=== PATIENT | male | born 1940 | race Caucasian/White ===

== ENCOUNTER 2024-04-13 06:25 | Observation (INO) ==
[~2024-04-13 06:25] MED LIST: KETAMINE HCL ONE; XYLOCAINE 2 % (PLAIN) ONE
[2024-04-13] MEDS: NOZIN NASAL SANITIZER TP ONE (06:45)
[2024-04-13] MEDS: NS 1,000 ML IV 1,000 ML ONE (07:00)
[2024-04-13] MEDS: PEPCID 20 MG VIAL ONE (07:27)
[2024-04-13] MEDS: ZOFRAN INJ 4 MG VIAL ONE (07:27)
[2024-04-13] MEDS: PRECEDEX INJ VIAL ONE (07:27)
[2024-04-13] MEDS: REGLAN INJ 10 MG VIAL ONE (07:27)
[2024-04-13] MEDS: FENTANYL VIAL INJ 100 mcg ONE (07:30)
[2024-04-13] MEDS: VERSED ONE (07:30)
[2024-04-13] MEDS: DIPRIVAN VIAL 20 ML ONE ×3 (07:34→10:31)
[2024-04-13] MEDS: NS IV PRN (07:40)
[2024-04-13] MEDS: VERSED IVP PRN (07:47)
[2024-04-13] MEDS: ZOFRAN INJ 4 MG VIAL IVP PRN (07:47)
[2024-04-13] MEDS: PEPCID 20 MG VIAL IVP PRN (07:47)
[2024-04-13] MEDS: ANCEF VIAL 1 GRAM ONE (07:47)
[2024-04-13] MEDS: NS 100 ML IV 100 ML ONE (07:47)
[2024-04-13] MEDS: REGLAN INJ 10 MG VIAL IVP PRN (07:47)
[2024-04-13] MEDS: PROPOFOL IVP PRN (07:55)
[2024-04-13] MEDS: KETAMINE HCL IV PRN (07:55)
[2024-04-13] MEDS: PRECEDEX INJ VIAL IVP PRN (07:55)
[2024-04-13] MEDS: ANCEF VIAL 1 GRAM IV PRN (07:57)
[2024-04-13] MEDS: VISIPAQUE 50 ML ONE (08:09)
[2024-04-13] MEDS: HEPARIN 1,000 UNIT/500 ML-NS 3,000 UNIT/1,500 ML IV.SOLN ONE (08:09)
[2024-04-13] MEDS: MARCAINE 0.5% ONE ×2 (08:09→09:11)
[2024-04-13] MEDS: NEO-SYNEPHRINE INJ ONE (08:11)
[2024-04-13] MEDS: HEPARIN SODIUM INJ 5000 UNITS ONE ×2 (08:15→09:45)
[2024-04-13] MEDS: HESPAN IV IN NS 500 ML IV ONE (08:55)
[2024-04-13] MEDS: NEO-SYNEPHRINE INJ IVP PRN (09:03)
[2024-04-13] MEDS: VASOSTRICT INJ 20 UNITS VIAL ONE (09:16)
[2024-04-13] MEDS: NS 500 ML IV 500 ML IV ONE (09:18)
[2024-04-13] MEDS: FENTANYL VIAL INJ 100 mcg IVP PRN (09:18)
[2024-04-13] MEDS: HEPARIN SODIUM INJ 5000 UNITS IVP PRN (09:45)
[2024-04-13] MEDS ORDERED: NORVASC TAB 10 MG PRN (10:06)
[2024-04-13] MEDS ORDERED: ZOFRAN INJ 4 MG VIAL IVP PRN (10:07)
[2024-04-13] MEDS ORDERED: DILAUDID INJ IVP PRN (10:07)
[2024-04-13] MEDS ORDERED: BENADRYL INJ 50 MG VIAL IVP PRN (10:07)
[2024-04-13] MEDS ORDERED: BARHEMSYS INJ IVP PRN (10:07)
[2024-04-13] MEDS: DILAUDID INJ ONE (10:15)
[2024-04-13] MEDS: DUONEB 0.5 MG/3 MG (3 mL) NEB ONE (10:26)
--- NOTE | 2024-04-13 10:32 | OR.IMMED ---
IMMEDIATE POST-OP NOTE Immediate Post-Op Note Date of surgery/procedure: 04/13/24 Pre-Op Diagnosis: Bilateral iliac vein compression Post-Op Diagnosis: Same Procedure: Bilateral iliac venograms, bilateral iliac vein intravascular ultrasound, stenting of the left common and external iliac veins with complication of inability to remove the balloon requiring dissection of the femoral vein, venotomy removal of the distal and balloon and closure. Description of Procedure: Dictated Surgeon/Traffic Control Technician: [place] Findings: 32% compression of the left common iliac vein, 40% compression of the left external iliac vein, 40% compression of the right common iliac vein Estimated Blood Loss: 900cc Complications: See above Progress Notes: To PACU then to admission upstairs will monitor hemoglobin
[2024-04-13] MEDS ORDERED: NovoLIN R (or HumuLIN R) SUBCUT PRN (10:33)
[2024-04-13] MEDS ORDERED: PERCOCET TAB 5/325 MG PO PRN (10:38)
[2024-04-13 10:45] LABS: BASOPHILS % (AUTO) 0.5 % (0.2-1.0); EOSINOPHILS # (AUTO) 0.3 x10^3/uL (0.0-0.2); EOSINOPHILS % (AUTO) 4.1 % (0.9-2.9); HEMATOCRIT 25.8 % (42.0-54.0); HEMOGLOBIN 8.6 g/dL (13.5-18.0); LYMPHOCYTES # (AUTO) 1.2 X10^3/uL (1.3-2.9); LYMPHOCYTES % (AUTO) 14.6 % (21.0-51.0); MEAN CORPUSCULAR HEMOGLOBIN 27.3 pg (27.0-34.0); MEAN CORPUSCULAR HGB CONC 33.2 g/dL (33.0-35.0); MEAN CORPUSCULAR VOLUME 82.2 fL (80.0-100.0); MEAN PLATELET VOLUME 7.1 fL (7.4-11.0); MONOCYTES # (AUTO) 0.8 x10^3/uL (0.3-0.8); MONOCYTES % (AUTO) 9.2 % (0.0-13.0); NEUTROPHILS # (AUTO) 6.1 x10^3/uL (2.2-4.8); NEUTROPHILS % (AUTO) 71.6 % (42.0-75.0); PLATELET COUNT 174 X10^3/uL (150.0-450.0); RED BLOOD COUNT 3.14 X10^6/uL (4.7-6.0); RED CELL DISTRIBUTION WIDTH 19.5 % (11.6-16.5); WHITE BLOOD COUNT 8.5 X10^3/uL (3.6-10.0)
[2024-04-13] MEDS: NARCAN INJ ONE (11:08)
--- NOTE | 2024-04-13 11:20 | RAD ---
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 It was likely within norm al limits. 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 Aorta is calcified. Lungs markedly hypoinflated . This is crowding the lung markings. There is subsegmental atelectasis in the right lung base. No acute alveolar infiltrates or areas of consolidation identified. The interstitium is prominent whic h could be on the basis of mild interstitial edema or perhaps interstitial pneumonitis. Bony thorax is unremarkable. IMPRESSION: Lungs are markedly hypoinflated but free of acute alveolar infiltrates or pleural effusions. The interstitium is prominent which could be on the basis of mild interstitial edema or interstitial pneumonitis. Clinical and laboratory correlation recommended. THIS IS AN ELECTRONICALLY VERIFIED FINAL REPORT 04/13/2024 11:17 AM - Electronically signed by Domingo Brunner MD
[2024-04-13 11:22] LABS: ABG ALLEN TEST POS; ABG BASE EXCESS 2.1 mmol/L (-2.0-2.0); ABG HCO3 27.3 mmol/L (22-26)
[2024-04-13] MEDS ORDERED: XOPENEX 1.25 MG/3 ML NEBULE NEB ONE (12:23)
[2024-04-13] MEDS: XOPENEX 1.25 MG/3 ML NEBULE NEB SCH (13:00)
[2024-04-13] MEDS: LR 1,000 ML IV 1,000 ML IV SCH (13:03)
[2024-04-13] MEDS ORDERED: TESSALON PERLES PO PRN (14:00)
[2024-04-13 14:02] VITALS: BMI 30.1
[2024-04-13] MEDS: APRESOLINE TAB 25 MG PO SCH (16:58)
[2024-04-13] MEDS: GLUCOPHAGE PO SCH (16:59)
[2024-04-13] MEDS: GLUCOPHAGE ONE (18:02)
[2024-04-13 18:52] LABS: BASOPHILS % (AUTO) 0.4 % (0.2-1.0); EOSINOPHILS # (AUTO) 0.1 x10^3/uL (0.0-0.2); EOSINOPHILS % (AUTO) 1.1 % (0.9-2.9); HEMATOCRIT 29.1 % (42.0-54.0); HEMOGLOBIN 9.5 g/dL (13.5-18.0); LYMPHOCYTES # (AUTO) 0.9 X10^3/uL (1.3-2.9); LYMPHOCYTES % (AUTO) 8.1 % (21.0-51.0); MEAN CORPUSCULAR HEMOGLOBIN 27.1 pg (27.0-34.0); MEAN CORPUSCULAR HGB CONC 32.8 g/dL (33.0-35.0); MEAN CORPUSCULAR VOLUME 82.7 fL (80.0-100.0); MEAN PLATELET VOLUME 7.7 fL (7.4-11.0); MONOCYTES % (AUTO) 9.3 % (0.0-13.0); NEUTROPHILS # (AUTO) 8.9 x10^3/uL (2.2-4.8); NEUTROPHILS % (AUTO) 81.1 % (42.0-75.0); PLATELET COUNT 195 X10^3/uL (150.0-450.0); RED BLOOD COUNT 3.52 X10^6/uL (4.7-6.0); RED CELL DISTRIBUTION WIDTH 19.3 % (11.6-16.5); WHITE BLOOD COUNT 10.9 X10^3/uL (3.6-10.0)
[2024-04-13] MEDS: BUSPAR PO SCH (21:01)
[2024-04-13] MEDS: SNACK - Diabetic Appropriate PO SCH (21:03)
[2024-04-13] MEDS: PULMICORT NEB TX 0.5 MG NEB SCH (21:12)
[2024-04-14] MEDS: GLUCOPHAGE ONE (06:02)
[2024-04-14] MEDS: GLUCOTROL XL 24-HR PO SCH (06:02)
[2024-04-14 08:39] VITALS: TEMP 98.2; O2SAT 96
[2024-04-14] MEDS: CARDIZEM CD 180 MG 24-HR PO SCH (08:58)
[2024-04-14] MEDS: TOPROL XL PO SCH (08:59)
[2024-04-14] MEDS: ZYLOPRIM PO SCH (08:59)
[2024-04-14] MEDS: PROTONIX TAB 40 MG PO SCH (08:59)
[2024-04-14] MEDS: LASIX PO SCH (08:59)
[2024-04-14] MEDS: LIPITOR TAB 20 MG PO SCH (09:00)
[2024-04-14] MEDS: PROSCAR PO SCH (09:00)
[2024-04-14] MEDS: ASPIRIN EC 81 MG PO SCH (09:00)
[2024-04-14] MEDS: PLAVIX PO SCH (09:01)
[2024-04-14] MEDS: K-DUR TAB 20 MEQ PO SCH (09:02)
[2024-04-14] MEDS: LOVENOX INJ 40 MG SYR SC SCH (09:03)
--- NOTE | 2024-04-14 09:51 | W.DIS.FURT ---
Summary of Discharge Discharge Summary of Date Date of Exam: 04/14/24 Admission Date Date of Admission: 04/13/24 Admission Diagnosis Hospital Course: This patient is a 83-year-old male who has been diagnosed with bilateral iliac vein compression. He was taken to the operating suite yesterday for stenting of the left common iliac vein. On withdrawing the balloon after dilating the stent the balloon got caught on the stent and could not be removed from the left femoral iliac vein. This required a open venotomy to remove the balloon. Postop he has done very well. He did have approximate 900 cc of blood loss and required 1 unit of packed red blood cells. Postprocedure his hemoglobin has been stable , actually been rising and was 9.5 on discharge. He is leg is intact. Dressing is intact with no hematoma. He has had some shortness of breath which not unusual for him. He will continue on his usual medications including his inhaler therapy. He will follow-up me in 1 week. He will continue all his other medications as prescribed and be given prescription for Percocet, 5 mg tablets, 1 every 6 hours as needed pain. Vital Signs: Vital Signs (72 hours) 04/13/24 06:33 04/13/24 06:33 04/13/24 10:24 Temperature 97.8 F 97.3 F L Pulse Rate 90 90 64 Pulse Rate [Bilateral Radial] Respiratory Rate 21 22 Blood Pressure 177/81 89/57 Blood Pressure [Left Arm] O2 Sat by Pulse Oximetry 91 L 96 Oxygen Delivery Method Nasal Cannula Aerosol Face Tent Oxygen Flow Rate FIO2% 04/13/24 10:34 04/13/24 10:29 04/13/24 10:39 Temperature Pulse Rate 61 66 56 L Pulse Rate [Bilateral Radial] Respiratory Rate 22 22 20 Blood Pressure 96/63 95/63 102/64 Blood Pressure [Left Arm] O2 Sat by Pulse Oximetry 94 L 96 92 L Oxygen Delivery Method Aerosol Face Tent Aerosol Face Tent Nasal Cannula Oxygen Flow Rate FIO2% 04/13/24 10:44 04/13/24 10:54 04/13/24 10:59 Temperature Pulse Rate 66 65 67 Pulse Rate [Bilateral Radial] Respiratory Rate 20 21 21 Blood Pressure 108/64 112/64 122/70 Blood Pressure [Left Arm] O2 Sat by Pulse Oximetry 90 L 93 L 93 L Oxygen Delivery Method Nasal Cannula Oxy Mask Oxy Mask Oxygen Flow Rate FIO2% 04/13/24 11:04 04/13/24 10:49 04/13/24 11:09 Temperature Pulse Rate 57 L 62 64 Pulse Rate [Bilateral Radial] Respiratory Rate 21 20 24 Blood Pressure 121/70 107/70 120/69 Blood Pressure [Left Arm] O2 Sat by Pulse Oximetry 92 L 89 L 92 L Oxygen Delivery Method Oxy Mask Nasal Cannula Oxy Mask Oxygen Flow Rate FIO2% 04/13/24 11:14 04/13/24 11:19 04/13/24 11:24 Temperature Pulse Rate 57 L 67 54 L Pulse Rate [Bilateral Radial] Respiratory Rate 30 H 30 H 26 H Blood Pressure 122/74 114/58 117/69 Blood Pressure [Left Arm] O2 Sat by Pulse Oximetry 93 L 94 L 93 L Oxygen Delivery Method Oxy Mask Oxy Mask Oxy Mask Oxygen Flow Rate FIO2% 04/13/24 11:29 04/13/24 11:34 04/13/24 11:39 Temperature Pulse Rate 58 L 67 69 Pulse Rate [Bilateral Radial] Respiratory Rate 30 H 30 H 30 H Blood Pressure 115/72 115/72 120/67 Blood Pressure [Left Arm] O2 Sat by Pulse Oximetry 96 93 L 95 Oxygen Delivery Method Oxy Mask Oxy Mask Oxy Mask Oxygen Flow Rate FIO2% 04/13/24 11:50 04/13/24 11:50 04/13/24 11:50 Temperature 97.9 F Pulse Rate Pulse Rate [Bilateral Radial] 62 Respiratory Rate 30 H Blood Pressure Blood Pressure [Left Arm] 125/77 O2 Sat by Pulse Oximetry 97 Oxygen Delivery Method Oxy Mask Nasal Cannula Oxy Mask Oxygen Flow Rate 4 3 FIO2% 32 04/13/24 12:00 04/13/24 12:30 04/13/24 13:00 Temperature Pulse Rate 66 Pulse Rate [Bilateral Radial] 62 63 Respiratory Rate 26 H 24 28 H Blood Pressure 117/64 Blood Pressure [Left Arm] 106/64 124/64 O2 Sat by Pulse Oximetry 97 98 97 Oxygen Delivery Method Nasal Cannula Nasal Cannula Nasal Cannula Oxygen Flow Rate 3 FIO2% 04/13/24 14:00 04/13/24 15:00 04/13/24 16:00 Temperature 97.7 F Pulse Rate Pulse Rate [Bilateral Radial] 68 69 71 Respiratory Rate 22 24 24 Blood Pressure Blood Pressure [Left Arm] 124/67 158/71 140/73 O2 Sat by Pulse Oximetry 96 97 96 Oxygen Delivery Method Nasal Cannula Nasal Cannula Nasal Cannula Oxygen Flow Rate FIO2% 02/18/25 16:00 04/13/24 17:00 04/13/24 18:00 Temperature 97.8 F Pulse Rate 71 Pulse Rate [Bilateral Radial] 71 71 Respiratory Rate 25 H 29 H 25 H Blood Pressure 140/73 Blood Pressure [Left Arm] 149/84 151/70 O2 Sat by Pulse Oximetry 95 96 95 Oxygen Delivery Method Nasal Cannula Nasal Cannula Nasal Cannula Oxygen Flow Rate 3 FIO2% 04/13/24 19:00 04/13/24 19:00 04/13/24 20:00 Temperature 98.0 F Pulse Rate Pulse Rate [Bilateral Radial] 78 74 Respiratory Rate 25 H 28 H Blood Pressure Blood Pressure [Left Arm] 149/75 168/77 O2 Sat by Pulse Oximetry 95 97 Oxygen Delivery Method Nasal Cannula Nasal Cannula Nasal Cannula Oxygen Flow Rate 3 FIO2% 04/13/24 21:00 04/13/24 22:00 04/13/24 23:00 Temperature Pulse Rate Pulse Rate [Bilateral Radial] 82 76 76 Respiratory Rate 36 H 20 29 H Blood Pressure Blood Pressure [Left Arm] 147/90 158/72 140/75 O2 Sat by Pulse Oximetry 97 97 95 Oxygen Delivery Method Nasal Cannula Nasal Cannula Nasal Cannula Oxygen Flow Rate FIO2% 04/14/24 00:00 04/14/24 01:00 04/14/24 02:00 Temperature 98.6 F Pulse Rate Pulse Rate [Bilateral Radial] 83 80 79 Respiratory Rate 23 27 H 23 Blood Pressure Blood Pressure [Left Arm] 157/78 147/67 149/69 O2 Sat by Pulse Oximetry 93 L 94 L 93 L Oxygen Delivery Method Nasal Cannula Nasal Cannula Nasal Cannula Oxygen Flow Rate FIO2% 04/13/24 21:12 04/13/24 21:12 04/14/24 03:00 Temperature Pulse Rate 75 Pulse Rate [Bilateral Radial] 84 Respiratory Rate 34 H Blood Pressure Blood Pressure [Left Arm] 160/86 O2 Sat by Pulse Oximetry 97 95 Oxygen Delivery Method Nasal Cannula Nasal Cannula Oxygen Flow Rate 3 FIO2% 32 04/14/24 04:00 04/14/24 05:00 04/14/24 06:00 Temperature 98.8 F Pulse Rate Pulse Rate [Bilateral Radial] 87 82 85 Respiratory Rate 30 H 23 34 H Blood Pressure Blood Pressure [Left Arm] 147/83 169/72 165/75 O2 Sat by Pulse Oximetry 97 93 L 94 L Oxygen Delivery Method Nasal Cannula Nasal Cannula Nasal Cannula Oxygen Flow Rate FIO2% 04/14/24 07:00 04/14/24 08:00 04/14/24 07:00 Temperature 98.2 F Pulse Rate Pulse Rate [Bilateral Radial] 101 H 81 Respiratory Rate 34 H 26 H Blood Pressure Blood Pressure [Left Arm] 166/76 131/58 O2 Sat by Pulse Oximetry 92 L 96 Oxygen Delivery Method Nasal Cannula Nasal Cannula Nasal Cannula Oxygen Flow Rate 3 FIO2% Labs: Laboratory Last Values WBC 10.9 X10^3/uL (3.6-10.0) H 04/13/24 18:13 RBC 3.52 X10^6/uL (4.7-6.0) L 04/13/24 18:13 Hgb 9.5 g/dL (13.5-18.0) L 04/13/24 18:13 Hct 29.1 % (42.0-54.0) L 04/13/24 18:13 MCV 82.7 fL (80.0-100.0) 04/13/24 18:13 MCH 27.1 pg (27.0-34.0) 04/13/24 18:13 MCHC 32.8 g/dL (33.0-35.0) L 04/13/24 18:13 RDW 19.3 % (11.6-16.5) H 04/13/24 18:13 Plt Count 195 X10^3/uL (150.0-450.0) 04/13/24 18:13 MPV 7.7 fL (7.4-11.0) 04/13/24 18:13 Neut % (Auto) 81.1 % (42.0-75.0) H 04/13/24 18:13 Lymph % (Auto) 8.1 % (21.0-51.0) L 04/13/24 18:13 [place] % (Auto) 9.3 % (0.0-13.0) 04/13/24 18:13 Eos % (Auto) 1.1 % (0.9-2.9) 04/13/24 18:13 Baso % (Auto) 0.4 % (0.2-1.0) 04/13/24 18:13 Neut # (Auto) 8.9 x10^3/uL (2.2-4.8) H 04/13/24 18:13 Lymph # (Auto) 0.9 X10^3/uL (1.3-2.9) L 04/13/24 18:13 [place] # (Auto) 1.0 x10^3/uL (0.3-0.8) H 04/13/24 18:13 Eos # (Auto) 0.1 x10^3/uL (0.0-0.2) 04/13/24 18:13 Baso # (Auto) 0.0 X10^3/uL (0.0-0.1) 04/13/24 18:13 Absolute Nucleated RBC 0.1 /100WBC 04/13/24 18:13 Sample Site Rr 04/13/24 11:11 ABG pH 7.400 (7.35-7.45) 04/13/24 11:11 ABG pCO2 44.0 mmHg (35.0-45.0) 04/13/24 11:11 ABG pO2 67.0 mmHg (80.0-100.0) L 04/13/24 11:11 ABG HCO3 27.3 mmol/L (22-26) H 04/13/24 11:11 ABG O2 Saturation 93.0 % (90-100) 04/13/24 11:11 ABG Base Excess 2.1 mmol/L (-2.0-2.0) H 04/13/24 11:11 Turner Test Pos 04/13/24 11:11 A-a Gradient 220.0 mmHg 04/13/24 11:11 FiO2 48.0 04/13/24 11:11 Blood Gas Comments Pt palma well cdn 04/13/24 11:11 POC Glucose (mg/dL) 135 mg/dL (65-99) H 04/14/24 05:35 Blood Type O POSITIVE 04/12/24 14:00 Antibody Screen Negative 04/12/24 13:57 Crossmatch See Detail 04/12/24 13:57 Reason For Visit: S/P OPEN VENOTOMY, SHORTNESS OF BREATH, Discharge Diagnosis All Active Problems (Updated 04/14/24 @ 09:49 by Ricardo Gloria) Compression of vein (Acute) Plan of Treatment: Continue with present treatment and follow up plan. Pt is to keep follow up appointment as instructed and take medications as ordered. Discharge Medications Discharge Medications: iron Adverse Reaction (Verified 04/13/24 07:12) CONTINUE taking the following medications allopurinol 300 mg tablet 300 mg HS 04/13/24 [History] atorvastatin 20 mg tablet 20 mg HS 04/13/24 [History] clopidogrel 75 mg tablet 75 mg PO QDAY 04/13/24 [History] diltiazem HCl 180 mg capsule,extended release 24 hr 180 mg PO QDAY 04/13/24 [History] finasteride 5 mg tablet 5 mg PO HS 04/13/24 [History] fluticasone fur. 100 mcg-umeclid 62.5 mcg-vilant 25 mcg inhalat.powder (Trelegy Ellipta) 1 ea inhalation QDAY 04/13/24 [History] furosemide 40 mg tablet 40 mg PO BID 04/13/24 [History] glipizide 10 mg tablet, extended release 24 hr 10 mg PO DAILY 04/13/24 [History] hydralazine 25 mg tablet 25 mg PO 3XD 04/13/24 [History] metformin 500 mg tablet 500 mg PO BID 04/13/24 [History] metoprolol succinate 50 mg tablet,extended release 24 hr 50 mg PO QDAY 04/13/24 [History] potassium chloride 20 mEq tablet,extended release 20 meq PO DAILY 04/13/24 [History] Discharge Disposition Assessment: see hospital course Discharge Plan Discharge Plan Hospital Course: This patient is a 83-year-old male who has been diagnosed with bilateral iliac vein compression. He was taken to the operating suite yesterday for stenting of the left common iliac vein. On withdrawing the balloon after dilating the stent the balloon got caught on the stent and could not be removed from the left femoral iliac vein. This required a open venotomy to remove the balloon. Postop he has done very well. He did have approximate 900 cc of blood loss and required 1 unit of packed red blood cells. Postprocedure his hemoglobin has been stable , actually been rising and was 9.5 on discharge. He is leg is intact. Dressing is intact with no hematoma. He has had some shortness of breath which not unusual for him. He will continue on his usual medications including his inhaler therapy. He will follow-up me in 1 week. He will continue all his other medications as prescribed and be given prescription for Percocet, 5 mg tablets, 1 every 6 hours as needed pain. Patient Disposition: HOME HEALTH SERVICE Condition: Stable Health Concerns: Post Hospitalization: new medications and changes needed to prevent readmission or further decline. Pt educated and given instructions on all concerns. Care Plan Goals: Problem: Altered Tissue Perfusion Goal: Adequate Tissue Perfusion Instructions: Follow provided instructions. Follow up with primary physician as directed. Contact primary care physician or report to the closest Emergency Room if condition worsens. Plan of Treatment: Continue with present treatment and follow up plan. Pt is to keep follow up appointment as instructed and take medications as ordered. Assessment: see hospital course Prescription drug monitoring program results: PDMP reviewed and no concerns identified Prescriptions: New oxycodone-acetaminophen [Percocet] 5-325 mg tablet 1 tab PO Q6H MDD 4 PRNQty: 30 0RF Continued allopurinol 300 mg tablet 300 mg HS atorvastatin 20 mg tablet 20 mg HS clopidogrel 75 mg tablet 75 mg PO QDAY diltiazem HCl 180 mg capsule,extended release 24hr 180 mg PO QDAY finasteride 5 mg Tablet 5 mg PO HS furosemide 40 mg tablet 40 mg PO BID glipizide 10 mg tablet extended release 24hr 10 mg PO DAILY hydralazine 25 mg tablet 25 mg PO 3XD metformin 500 mg tablet 500 mg PO BID Rx Instructions: one in AM and one in PM metoprolol succinate 50 mg tablet extended release 24 hr 50 mg PO QDAY potassium chloride 20 mEq Tablet Extended Release 20 meq PO DAILY Trelegy Ellipta 100-62.5-25 mcg blister with device 1 ea INHALATION QDAY Follow ups/Referrals Follow ups/Referrals: Ricardo Gloria [STAFF PHYSICIAN] - 04/21/24 11:00 am Instructions Instructions: Bleeding Precautions When on Anticoagulant Therapy, Adult, Venogram, Care After, Venogram, Endovascular Therapy for Peripheral Vascular Disease: What to Know After Activity Restrictions/Additional Instructions: Leave dressing intact, keep clean and dry. Take medication as directed. Follow up with Dr. Gloria on 04/21/24@11:00am. Contact Dr. Gloria with any concerns. Stand Alone Forms: Find Help Web Site, [facility], [facility] Follow Up Care
[2024-04-14 11:05] VITALS: BP 141/78; PULSE 82; RESP 28
--- NOTE | 2024-04-14 16:53 | DR.OPNOTE ---
OP NOTE Pre-Op Diagnosis: Bilateral iliac vein compression same Post-Op Diagnosis: same Procedure Date Date Of Procedure: 04/13/24 Procedure: PROCEDURE : Bilateral iliac venograms, bilateral iliac vein intravascular ultrasound, stenting left iliac vein, complicated by bursting of the dilatation balloon which became stuck on the distal stetn requiring open venotomy of the left common femoral vein and closure of venotomy. Patient tolerated well NARRATIVE: The patient was taken to the operative suite and placed in the supine position. Both groins were prepped and draped in sterile fashion. Ultrasound used to identify the left greater saphenous vein and the skin overlying it infiltrated with 0.5% Marcaine. Ultrasound used to guide puncture of the left greater saphenous vein and a 0.012 inch guidewire placed. Incision made over the guidewire with a #11 knife blade and a micro sheath placed over the guidewire into the greater saphenous vein and into the left femoral vein. The small guidewire exchanged for a 0.035 inch advantage Glidewire and the micro sheath exchanged for a 10 [place] vascular sheath. Ultrasound then used to identify the right greater saphenous vein and the skin overlying it infiltrated with 0.5% Marcaine. Ultrasound used to guide puncture of the right greater saphenous vein and a 0.012 inch guidewire placed. Incision over the guidewire made with a #11 knife blade and a micro sheath placed over the guidewire into the right greater saphenous vein and into the right femoral vein. Bilateral iliac venograms performed showing probable bilateral iliac vein compression.Bilateral intravascular ultrasound of the iliac veins performed showing 32% compression of the left common iliac vein, 40% compression of the left external iliac vein, 40% compression of the right common iliac vein . The left side selected to be stented as it was the most symptomatic side. Over the wire on the side we placed a Venous Wall Stent measuring 18x 90mm. It was positioned over the area of compression of the left common iliac vein and then deployed. An 16 mm x 60 mm stent was placed distal to this initial stent with overlap. We balloon dilated the proximal stent inflating it to 5 atmospheres and then we moved the balloon down after deflating and got blood back consistent with a balloon having been burst. On withdrawing the balloon it would not come out. It appeared to be stuck on the distal stent which had inverted on the proximal end. Multiple attempts were made to remove it percutaneously but were unsuccessful. Therefore incision was made in the left groin after injecting with local anesthesia and careful dissection made above the stent in the common femoral vein and a vessel loop placed here. Vessel lop placed around the common femoral vein distal to the stent. All surrounding small vessels were clipped with metal clips and divided. The patient had been given additional 3000 units of heparin. After clamping the vein proximally and distally the vein was opened with 11 knife blade and Ross scissors removing the balloon and the distal stent. There was no injury to the vein itself. Venotomy closed with 2 layers of running 5-0 Prolene suture. Clamps removed reestablishing flow with no leaking. Surgicel placed in the left groin incision. The groin closed in 2 layers of running 3-0 Vicryl suture after hemostasis obtained and irrigation performed. Skin closed with skin laurence and dressing applied. Wire and sheath of the right groin removed and direct pressure held over this puncture site for 10 minutes with a D-stat in place for hemostasis. The patient was taken to PACU in good condition. Type of Anesthesia: Local (0.5% Marcaine) Anesthesia Comment: Plus MAC Findings: 32% compression of the left common iliac vein, 40% compression of the proximal left external iliac vein, 30% compression of the left common femoral vein, 40% compression of the right common iliac vein Type of Fluids Used:: Lactated Ringers Total Amount of Fluid Infused:: 2150 ( Crystalloid +1 unit of blood equals this total) EBL: 900cc Hardware: 18 mm x 90 mm Venous Wallstent Complications:: Dilatation balloon became stuck after bursting and could not be removed requiring open venotomy of the left common femoral vein removal of the distal stent and balloon and closure of venotomy Needle/Sponge Count:: correct Disposition/Condition: Pt. tolerated procedure without difficulty. Taken to PACU in stable condition.
== END 2024-04-14 11:40 | disposition home health service (06) ==
LOC: SURG1 06:25 → ICU 06:25 → EDUNIT# 07:30
PROVIDERS: ADMIT Surgery; ATTEND Surgery
DX: I87.1 Compression of vein; R06.02 Shortness of breath; E11.65 Type 2 diabetes mellitus with hyperglycemia; D64.89 Other specified anemias; I87.2 Venous insufficiency (chronic) (peripheral); I97.88 Other intraoperative complications of the circulatory system, not elsewhere classified

== ENCOUNTER 2024-04-17 14:33 | Inpatient (IN) ==
[2024-04-17 15:03] VITALS: BMI 31.9
[2024-04-17] MEDS: LASIX IVP ONE ×2 (16:21→23:51)
[2024-04-17] MEDS: MORPHINE SULFATE INJ 2 MG INJ IVP ONE ×2 (16:23→17:35)
[2024-04-17 16:41] LABS: BASOPHILS # (AUTO) 0.1 X10^3/uL (0.0-0.1); BASOPHILS % (AUTO) 0.5 % (0.2-1.0); EOSINOPHILS # (AUTO) 0.5 x10^3/uL (0.0-0.2); EOSINOPHILS % (AUTO) 4.1 % (0.9-2.9); HEMATOCRIT 29.7 % (42.0-54.0); HEMOGLOBIN 9.7 g/dL (13.5-18.0); LYMPHOCYTES # (AUTO) 1.2 X10^3/uL (1.3-2.9); LYMPHOCYTES % (AUTO) 10.6 % (21.0-51.0); MEAN CORPUSCULAR HGB CONC 32.7 g/dL (33.0-35.0); MEAN CORPUSCULAR VOLUME 82.4 fL (80.0-100.0); MEAN PLATELET VOLUME 7.3 fL (7.4-11.0); MONOCYTES # (AUTO) 0.8 x10^3/uL (0.3-0.8); MONOCYTES % (AUTO) 7.2 % (0.0-13.0); NEUTROPHILS # (AUTO) 8.6 x10^3/uL (2.2-4.8); NEUTROPHILS % (AUTO) 77.6 % (42.0-75.0); PLATELET COUNT 257 X10^3/uL (150.0-450.0); RED CELL DISTRIBUTION WIDTH 19.9 % (11.6-16.5); WHITE BLOOD COUNT 11.1 X10^3/uL (3.6-10.0)
[2024-04-17 16:54] LABS: CALCIUM 9.3 mg/dL (8.5-10.1); CARBON DIOXIDE 26.3 mmol/L (21-32); COR CA(FOR HYPOALB) 10.1 mg/dL (8.5-10.1); CREATININE 2.21 mg/dL (0.70-1.30); POTASSIUM 4.2 mmol/L (3.5-5.1); TOTAL PROTEIN 7.3 g/dL (6.4-8.2)
--- NOTE | 2024-04-17 17:20 | DR.GENAD ---
HPI Time Seen Time Seen by Provider: 04/17/24 15:02 HPI Comment HPI Comment: According to pt he has had left common iliac vein stent placement in his left groin at least 5 days ago .Pt did experience pain and swelling afterwards. Had ultrasound done at another hospital ER he was noted to have functioning stent .His indicates that his scrotal swelling has worsened. Does have an appointment to see Dr Gloria his vascular surgeon in Friday Complaint/Symptoms Chief Complaint Doctors Comments: scrotal pain and swelling Chief Complaint:: scrotal swelling Nurses notes reviewed Nurses Notes Review: Yes Source History Provided: Patient and Significant Other Mode of Arrival Mode of Arrival: Wheelchair Timing Came on: Gradually Duration Duration: Since Onset Duration: Days Severity Severity: Severe PMH PMH Past Surgical History: Yes Surgical History: Cholecystectomy Family History Family Medical History: Hypertension ROS Review of Systems Constitutional: No Symptoms Reported Eyes: No Symptoms Reported ENTM: No Symptoms Reported Respiratoy: No Symptoms Reported Cardiovascular: No Symptoms Reported Gastrointestinal/Abdominal: No Symptoms Reported Genitourinary: See HPI Neurological: No Symptoms Reported Musculoskeletal: No Symptoms Reported PE Vital Signs Vitals: Vital Signs Temperature 97.5 F Pulse Rate 76 Pulse Rate 76 Pulse Rate 76 Pulse Rate 85 Pulse Rate 75 Pulse Rate 80 Pulse Rate 85 Pulse Rate 90 Pulse Rate 89 Pulse Rate 77 Pulse Rate 73 Pulse Rate 72 Pulse Rate 74 Pulse Rate 78 Pulse Rate 83 Pulse Rate 80 Respiratory Rate 19 Respiratory Rate 19 Respiratory Rate 22 Blood Pressure 163/79 Blood Pressure 183/80 Blood Pressure 168/79 Blood Pressure 203/91 Blood Pressure 203/91 Blood Pressure 134/74 Blood Pressure 169/65 Blood Pressure 161/77 O2 Sat by Pulse Oximetry 98 O2 Sat by Pulse Oximetry 93 O2 Sat by Pulse Oximetry 94 O2 Sat by Pulse Oximetry 97 O2 Sat by Pulse Oximetry 95 O2 Sat by Pulse Oximetry 94 O2 Sat by Pulse Oximetry 93 O2 Sat by Pulse Oximetry 93 O2 Sat by Pulse Oximetry 95 O2 Sat by Pulse Oximetry 94 O2 Sat by Pulse Oximetry 95 O2 Sat by Pulse Oximetry 93 O2 Sat by Pulse Oximetry 95 O2 Sat by Pulse Oximetry 95 O2 Sat by Pulse Oximetry 95 O2 Sat by Pulse Oximetry 95 General Limitations: No Limitations General Appearance: Alert and In Distress Head Head Exam: Normal Inspection, Atraumatic and Normocephalic Eyes Eye exam: Normal Appearance, PERRL and EOMI ENT ENT Exam: Mucous Membranes Moist External Ear Exam: Normal External Inspection Neck Neck Exam: Normal Inspection Chest Chest Inspection: Normal Inspection and Symmetric Chest Wall Rise Respiratory Respiratory Exam: Bilateral: Clear to Auscultation Cardiovascular Cardiovascular Exam: +S1 and +S2 Abdominal Exam Abdominal Exam: Normal Bowel Sounds, Soft and Other (scrotum considerably swollen at least 7 cm ,nil warm ot touch but tender to palpate .Pos swollen skin over the penis .wound left groin from recent procedure swollen and tender but no redness or warm but without drainage or draiang e) Extremities Extremities Exam: Other (good peripheral pulses per arterial doppler ) Neurologic Neurological Exam: Alert Skin Skin Exam: Normal Color MDM Differential Diagnosis Differential Diagnosis: scrotal hematoma,swelling and pain ,s/p left stent COURSE Treatment Treatment: labs ,ct abdomen/pelvis,IV morphine .purewick Reevaluation 1st: Improved ROR Labs Reviewed Laboratory Results Reviewed?: Yes 04/17/24 16:23 04/17/24 16:23 Laboratory: WBC 11.1 X10^3/uL (3.6-10.0) H 04/17/24 16:23 RBC 3.60 X10^6/uL (4.7-6.0) L 04/17/24 16:23 Hgb 9.7 g/dL (13.5-18.0) L 04/17/24 16:23 Hct 29.7 % (42.0-54.0) L 04/17/24 16:23 MCV 82.4 fL (80.0-100.0) 04/17/24 16:23 MCH 27.0 pg (27.0-34.0) 04/17/24 16:23 MCHC 32.7 g/dL (33.0-35.0) L 04/17/24 16:23 RDW 19.9 % (11.6-16.5) H 04/17/24 16:23 Plt Count 257 X10^3/uL (150.0-450.0) 04/17/24 16:23 MPV 7.3 fL (7.4-11.0) L 04/17/24 16:23 Neut % (Auto) 77.6 % (42.0-75.0) H 04/17/24 16:23 Lymph % (Auto) 10.6 % (21.0-51.0) L 04/17/24 16:23 [place] % (Auto) 7.2 % (0.0-13.0) 04/17/24 16:23 Eos % (Auto) 4.1 % (0.9-2.9) H 04/17/24 16:23 Baso % (Auto) 0.5 % (0.2-1.0) 04/17/24 16:23 Neut # (Auto) 8.6 x10^3/uL (2.2-4.8) H 04/17/24 16:23 Lymph # (Auto) 1.2 X10^3/uL (1.3-2.9) L 04/17/24 16:23 [place] # (Auto) 0.8 x10^3/uL (0.3-0.8) 04/17/24 16:23 Eos # (Auto) 0.5 x10^3/uL (0.0-0.2) H 04/17/24 16:23 Baso # (Auto) 0.1 X10^3/uL (0.0-0.1) 04/17/24 16:23 Absolute Nucleated RBC 0.2 /100WBC 04/17/24 16:23 Sodium 140 mmol/L (136-145) 04/17/24 16:23 Corrected Sodium 140 mmol/L (136-145) 04/17/24 16:23 Potassium 4.2 mmol/L (3.5-5.1) 04/17/24 16:23 Chloride 102 mmol/L (98-107) 04/17/24 16:23 Carbon Dioxide 26.3 mmol/L (21-32) 04/17/24 16:23 BUN 46 mg/dL (7-18) H 04/17/24 16:23 Creatinine 2.21 mg/dL (0.70-1.30) H 04/17/24 16:23 Est GFR (MDRD) Af Amer 37 (>60) L 04/17/24 16:23 Est GFR (MDRD) Non-Af 30 (>60) L 04/17/24 16:23 Glucose 119 mg/dL (65-99) H 04/17/24 16:23 Calcium 9.3 mg/dL (8.5-10.1) 04/17/24 16:23 Corrected Calcium 10.1 mg/dL (8.5-10.1) 04/17/24 16:23 Total Bilirubin 0.70 mg/dL (0.2-1.0) 04/17/24 16:23 AST 20 Units/L (15-37) 04/17/24 16:23 ALT 17 Units/L (12-78) 04/17/24 16:23 Alkaline Phosphatase 76 Units/L (46-116) 04/17/24 16:23 Total Protein 7.3 g/dL (6.4-8.2) 04/17/24 16:23 Albumin 3.0 g/dL (3.4-5.0) L 04/17/24 16:23 Globulin 4.3 g/dL (2.5-4.5) 04/17/24 16:23 Albumin/Globulin Ratio 0.7 Ratio (1.1-2.1) L 04/17/24 16:23 Opioid Opioid Risk Tool History of Preadolescent Sexual Abuse: No Total: 0 Total Score Risk Category: Low Risk Copyright: Juan GIRON predicting aberrant behaviors Discharge Plan Diagnosis Discharge Problem: Hematoma of scrotum, Scrotal swelling, Pain in scrotum, Chronic renal failure, stage 3b Discharge Plan Patient Disposition: HOME, SELF-CARE Condition: Stable Prescriptions: Continued aspirin 81 mg Capsule 81 mg PO QDAY allopurinol 300 mg tablet 300 mg HS atorvastatin 20 mg tablet 20 mg HS clopidogrel 75 mg tablet 75 mg PO QDAY diltiazem HCl 180 mg capsule,extended release 24hr 180 mg PO QDAY finasteride 5 mg Tablet 5 mg PO HS hydralazine 25 mg tablet 25 mg PO 3XD metoprolol succinate 50 mg tablet extended release 24 hr 50 mg PO QDAY Trelegy Ellipta 100-62.5-25 mcg blister with device 1 ea INHALATION QDAY Discontinued magnesium 200 mg Tablet 400 mg PO QHS omeprazole magnesium [Prilosec OTC] 20 mg Tablet,Delayed Release (Dr/Ec) 20 mg PO QMWF mecobalamin (vitamin B12) [B12 Active] 1,000 mcg Tablet,Chewable 1,000 mcg PO QDAY furosemide 40 mg tablet 40 mg PO BID glipizide 10 mg tablet extended release 24hr 10 mg PO DAILY metformin 500 mg tablet 500 mg PO BID Rx Instructions: one in AM and one in PM potassium chloride 20 mEq Tablet Extended Release 20 meq PO DAILY oxycodone-acetaminophen [Percocet] 5-325 mg tablet 1 tab PO Q6H MDD 4 PRNQty: 30 0RF Health Concerns: Post Hospitalization: new medications and changes needed to prevent readmission or further decline. Pt educated and given instructions on all concerns. Plan of Treatment: Continue with present treatment and follow up plan. Pt is to keep follow up appointment as instructed and take medications as ordered. Orders to Discharge Patient Discharge Orders: Discharge (Routine); Ordered 04/17/24 Ordered By: Pepe Medina Transfer (Routine); Ordered 04/17/24 Ordered By: Pepe Medina Follow ups/Referrals Follow ups/Referrals: WILFREDO BOSCH [Primary Care Provider] - 3 days Instructions Stand Alone Forms: Find Help Web Site, Post Hospital Follow Up Care ADDITIONAL NOTES Additional Notes Additional Notes: due to pain swelling with recent left common iliac stent .Spoke with Dr Nguyen .Agreed to have patient admitted Cont with pain management IV lasix once daily sliding scale insulin ,monitor electrolyte
--- NOTE | 2024-04-17 18:33 | CT ---
CT ABDOMEN AND PELVIS WITHOUT CONTRASTHISTORY:scrotal edema, pain;COMPARISON:NoneTECHNIQUE:Axial images were obtained of the abdomen and pelvis without IV contrast. Sagittal and coronal reformatted images were provided. All images were reviewed in a variety of windows and levels.RADIATION REDUCTION TECHNIQUE: Automated exposure control, adjustment of the mA or kV according to patient size, or iterative reconstruction techniques were used.FINDINGS:Please note that lack of IV contrast does limit evaluation of the soft tissues and vascular detail.The visualized lower lung zones demonstrates small bilateral pleural effusions with mild dependent atelectatic changes in right lower lobe consolidation. The heart size is within normal limits. There is no evidence of a pericardial effusion. Prosthetic aortic valve is suggested.The liver, spleen, pancreas, adrenal glands, and kidneys are grossly unremarkable. Status post cholecystectomy. Left common iliac vein stent is noted.There is no evidence of stones or signs of obstructive uropathy. There is diffuse soft tissue edema with inflammation and anasarca in the lower pelvis and within the scrotal region suggesting there may also be hydroceles. Heavy calcified plaque burden is noted. There are postsurgical changes seen in the left inguinal region and in the region of the left common femoral vein with scattered pockets of fluid which may also be associated with lymph nodes although this isn't definitively clear. This could also represent infected fluid. It is unclear whether this may also represent vascular injury. Surgical consultation may be obtained as clinically indicated.The stomach, small bowel, and colon are grossly unremarkable. A few scattered diverticula are seen without evidence of diverticulitis. There are no inflammatory changes in the right lower quadrant to suggest secondary signs of acute appendicitis. Partial visualization of the appendix is normal. The appendix is not seen in its entirety on this examination.There is no evidence of retroperitoneal or mesenteric lymphadenopathy.The visualized bones demonstrate degenerative changes. There are no concerning lytic or blastic lesions identified.IMPRESSION:1. The visualized lower lung zones demonstrates small bilateral pleural effusions with mild dependent atelectatic changes in right lower lobe consolidation.2. Prosthetic aortic valve is suggested.3. Status post cholecystectomy.4. Left common iliac vein stent is noted.5. There is diffuse soft tissue edema with inflammation and anasarca in the lower pelvis and within the scrotal region suggesting there may also be hydroceles.6. There are postsurgical changes seen in the left inguinal region and in the region of the left common femoral vein with scattered pockets of fluid which may also be associated with lymph nodes although this isn't definitively clear. This could also represent infected fluid. It is unclear whether this may also represent vascular injury. Surgical consultation may be obtained as clinically indicated.THIS IS AN ELECTRONICALLY VERIFIED FINAL REPORT04/17/2024 6:30 PM - Electronically signed by Jaylan Wren MD
[2024-04-17] MEDS: DILAUDID INJ IVP PRN (21:26)
[2024-04-17] MEDS: PULMICORT NEB TX 0.5 MG NEB SCH (21:42)
[2024-04-17] MEDS: ZYLOPRIM PO SCH (21:51)
[2024-04-17] MEDS: APRESOLINE TAB 25 MG PO SCH (21:51)
[2024-04-17] MEDS: LIPITOR TAB 20 MG PO SCH (21:51)
[2024-04-17] MEDS: PROSCAR PO SCH (21:51)
[2024-04-17] MEDS: SNACK - Diabetic Appropriate PO SCH (22:05)
[2024-04-17] MEDS: MORPHINE SULFATE INJ 2 MG INJ ONE (23:51)
[2024-04-18 05:51] LABS: BASOPHILS % (AUTO) 0.5 % (0.2-1.0); EOSINOPHILS # (AUTO) 0.6 x10^3/uL (0.0-0.2); EOSINOPHILS % (AUTO) 5.9 % (0.9-2.9); HEMATOCRIT 27.9 % (42.0-54.0); HEMOGLOBIN 9.2 g/dL (13.5-18.0); LYMPHOCYTES % (AUTO) 10.6 % (21.0-51.0); MEAN CORPUSCULAR HEMOGLOBIN 27.1 pg (27.0-34.0); MEAN CORPUSCULAR HGB CONC 32.9 g/dL (33.0-35.0); MEAN CORPUSCULAR VOLUME 82.2 fL (80.0-100.0); MEAN PLATELET VOLUME 7.3 fL (7.4-11.0); MONOCYTES # (AUTO) 0.9 x10^3/uL (0.3-0.8); MONOCYTES % (AUTO) 9.2 % (0.0-13.0); NEUTROPHILS # (AUTO) 6.9 x10^3/uL (2.2-4.8); NEUTROPHILS % (AUTO) 73.8 % (42.0-75.0); PLATELET COUNT 235 X10^3/uL (150.0-450.0); RED CELL DISTRIBUTION WIDTH 19.9 % (11.6-16.5); WHITE BLOOD COUNT 9.4 X10^3/uL (3.6-10.0)
[2024-04-18 06:07] LABS: ALANINE AMINOTRANSFERASE 16 Units/L (12-78); ALBUMIN 2.7 g/dL (3.4-5.0); ALKALINE PHOSPHATASE 71 Units/L (46-116); ASPARTATE AMINO TRANSFERASE 21 Units/L (15-37); BLOOD UREA NITROGEN 41 mg/dL (7-18); CALCIUM 8.9 mg/dL (8.5-10.1); CARBON DIOXIDE 30.7 mmol/L (21-32); CHLORIDE 104 mmol/L (98-107); COR CA(FOR HYPOALB) 9.9 mg/dL (8.5-10.1); CREATININE 1.94 mg/dL (0.70-1.30); GLUCOSE 73 mg/dL (65-99); POTASSIUM 3.8 mmol/L (3.5-5.1); SODIUM 141 mmol/L (136-145); TOTAL PROTEIN 6.7 g/dL (6.4-8.2); eGFR NON BLACK RACES 35 (>60)
[2024-04-18] MEDS: LR 1,000 ML IV 1,000 ML IV ONE (08:54)
[2024-04-18] MEDS: TOPROL XL PO SCH (08:54)
[2024-04-18] MEDS: CARDIZEM CD 180 MG 24-HR PO SCH (08:55)
[2024-04-18] MEDS: ASPIRIN EC 81 MG PO SCH (08:56)
[2024-04-18] MEDS: LASIX IVP SCH ×2 (08:56→17:21)
[2024-04-18] MEDS: VANCOMYCIN IV *PREMIX 1.25 G/250 ML BAG 1.25 G/250 ML PIGGYBACK IV SCH (08:56)
[2024-04-18] MEDS: PLAVIX PO SCH (08:57)
[2024-04-18] MEDS ORDERED: PATIENT'S HOME MEDICATION (Fluticasone-Umeclidin-Vilanter [Trelegy Ellipta] 100-62.5-25 mc IN SCH (09:00)
[2024-04-18] MEDS ORDERED: PATIENT'S HOME MEDICATION (Aspirin 81 mg Capsule) PO SCH (09:00)
[2024-04-18] MEDS ORDERED: VANCOMYCIN IV *PREMIX 1 G/200 ML BAG 1 G/200 ML PIGGYBACK IV ONE (09:00)
[2024-04-18 13:45] LABS: BILIRUBIN,URINE NEGATIVE (NEGATIVE); BLOOD/HEMOGLOBIN,URINE NEGATIVE (NEGATIVE); GLUCOSE, URINE NEGATIVE (NEGATIVE); KETONES,URINE NEGATIVE (NEGATIVE); LEUKOCYTE ESTERASE ,URINE NEGATIVE (NEGATIVE); NITRITES,URINE NEGATIVE (NEGATIVE); PROTEIN,URINE 2+ (NEGATIVE); UROBILINOGEN,URINE NORMAL (NORMAL)
[2024-04-18 13:47] LABS: APPEARANCE,URINE CLEAR (CLEAR); COLOR,URINE STRAW (YELLOW)
[2024-04-18 13:52] LABS: BACTERIA,URINE TRACE /HPF (NEGATIVE); RBC,URINE 0-2 /HPF (0-3); SQUAMOUS EPITHELIAL CELL,UR RARE /HPF (NEGATIVE)
[2024-04-18 13:53] LABS: HYALINE CASTS, URINE RARE /LPF (NEGATIVE)
[2024-04-18] MEDS: ZOSYN VIAL 3.375 GRAMS 3.375 G in NS 100 ML IV 100 ML IV SCH (15:30)
[2024-04-19 06:08] LABS: BASOPHILS # (AUTO) 0.1 X10^3/uL (0.0-0.1); BASOPHILS % (AUTO) 0.5 % (0.2-1.0); EOSINOPHILS # (AUTO) 0.3 x10^3/uL (0.0-0.2); EOSINOPHILS % (AUTO) 2.5 % (0.9-2.9); HEMATOCRIT 28.8 % (42.0-54.0); HEMOGLOBIN 9.4 g/dL (13.5-18.0); LYMPHOCYTES # (AUTO) 1.1 X10^3/uL (1.3-2.9); LYMPHOCYTES % (AUTO) 9.1 % (21.0-51.0); MEAN CORPUSCULAR HEMOGLOBIN 26.8 pg (27.0-34.0); MEAN CORPUSCULAR HGB CONC 32.6 g/dL (33.0-35.0); MEAN CORPUSCULAR VOLUME 82.1 fL (80.0-100.0); MEAN PLATELET VOLUME 7.3 fL (7.4-11.0); MONOCYTES # (AUTO) 1.1 x10^3/uL (0.3-0.8); MONOCYTES % (AUTO) 8.9 % (0.0-13.0); NEUTROPHILS # (AUTO) 9.5 x10^3/uL (2.2-4.8); PLATELET COUNT 244 X10^3/uL (150.0-450.0); RED CELL DISTRIBUTION WIDTH 19.8 % (11.6-16.5)
[2024-04-19 06:40] LABS: ALBUMIN 2.6 g/dL (3.4-5.0); CALCIUM 8.9 mg/dL (8.5-10.1); CARBON DIOXIDE 29.7 mmol/L (21-32); CREATININE 1.91 mg/dL (0.70-1.30); POTASSIUM 3.5 mmol/L (3.5-5.1); TOTAL PROTEIN 6.6 g/dL (6.4-8.2)
[2024-04-19] MEDS ORDERED: CONSULT PHARMACY - POTASSIUM & MAGNESIUM XX SCH (07:00)
[2024-04-19] MEDS: NS 250 ML IV 250 ML IV ONE (07:16)
[2024-04-19] MEDS: KLOR-CON 10 MEQ TAB PO NR (09:14)
[2024-04-19] MEDS: PERCOCET TAB 5/325 MG PO PRN (12:16)
[2024-04-19] MEDS: DUONEB 0.5 MG/3 MG (3 mL) NEB SCH (14:19)
[2024-04-19] MEDS: LASIX IVP SCH (16:46)
--- NOTE | 2024-04-19 20:14 | NOTE.SOAP ---
Soap Note Note for Day of Date of Exam: 04/19/24 Subjective Data Subjective Data: This patient is status post stenting of the left common iliac vein with complication of balloon getting stuck in the vein requiring venotomy and removal of the balloon. There was a deep dissection in the left groin for this. Postprocedure he has had significant swelling of his scrotum and around his penis. This is related to depth of dissection, his age, his poor proteins and some mild chronic renal insufficiency. His creatinine is stable at 1.91. The swelling is less of the scrotum but he has significant pitting edema of the upper thighs bilaterally. He currently has a Paulino catheter in place. He is not very mobile and that is the reason his brought here because she cannot handle him at home by herself. Objective Data Temperature: 97.7 F Pulse Rate: 80 Respiratory Rate: 18 Blood Pressure: 131/72 O2 Sat by Pulse Oximetry: 98 Objective Data: Objective findings as above. Patient overall is doing well. Still not very mobile. Assessment Assessment: Postoperative swelling of the scrotum and penis after surgery with a large left inguinal incision, his age and poor proteins. This is resolving but is slowly resolving. His cannot help him at home. Plan Plan: I talked to case management about half-way facility stay. Dr. Nguyen has recommended swing bed which I think is appropriate.
[2024-04-19] MEDS: NovoLIN R (or HumuLIN R) SUBCUT PRN (21:17)
--- NOTE | 2024-04-19 21:30 | DR.CONSULT ---
CONSULT Consultation for Day of: Date: 04/19/24 Chief Complaint Chief Complaint: 83 yo mal s/p stenting left iliac vein compression complicated by balloon getting stuck on the stent requiring open venotomy of the femoral vein and removal of the foreign body. Patient had been complaining of increased swelling and was evaluated in the [facility] emergency room the day after surgery where there was no significant bleeding but there was seroma and swelling in the scrotum. He was discharged home but and has been unable to get out of bed and his cannot move them very well. He has had pressure ulceration to the scrotum with bleeding and returned to the emergency room in [place] for evaluation. He is admitted by Dr. Nguyen. Past medical history significant for diabetes, hypertension, hyperlipidemia, normal pressure hydrocephalus treated with a MASTER OF CEREMONIES shunt. 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 Past Surgical History Surgical History: Cholecystectomy Additional Surgical History: Ventriculoperitoneal shunt, TAVR aortic valve, cholecystectomy Family History Family Medical History: Hypertension Social History Does patient currently use any type of tobacco product: No Have you used tobacco products in the last 12 months: No Type of Tobacco Use: None Does any household member use tobacco: No Alcohol Use: None Drug Use: None Medications Home Medications: iron Adverse Reaction (Verified 04/13/24 07:12) CONTINUE taking the following medications aspirin 81 mg capsule 81 mg PO QDAY 04/17/24 [History] buspirone 5 mg tablet 5 mg PO BID anxiety 04/18/24 [History] furosemide 40 mg tablet 40 mg PO BID 04/18/24 [History] glipizide 10 mg tablet, extended release 24 hr 10 mg PO DAILY 04/18/24 [History] magnesium oxide 400 mg PO HS 04/18/24 [History] metformin 500 mg tablet 500 mg PO BID 04/18/24 [History] metolazone 5 mg tablet 5 mg PO Q OTHER DAY swelling 04/18/24 [History] omeprazole magnesium 20 mg tablet,delayed release (Prilosec OTC) 20 mg PO 3XD 04/18/24 [History] potassium chloride 20 mEq tablet,extended release(part/cryst) (Klor-Con M) 20 meq PO DAILY 04/18/24 [History] Plavix 75 mg daily Trelegy Ellipta 1 puff once a day Allopurinol 300 mg daily Atorvastatin 20 mg daily Finasteride 5 mg daily Diltiazem extended release 180 mg once daily metoprolol Succinate 50 mg daily Hydralazine 25 mg 3 times a day Review of Systems Constitutional: See HPI Eyes: No Symptoms Reported ENT: No Symptoms Reported Respiratory: See HPI Cardiovascular: Other Gastrointestinal: No Symptoms Reported Genitourinary: See HPI Musculoskeletal: See HPI Skin: See HPI Neurological: See HPI Physical Exam Vital Signs: Vital Signs Temperature 97.7 F Temperature 97.9 F Temperature 97.7 F Pulse Rate [Left Radial] 80 Pulse Rate [Left Radial] 80 Pulse Rate 80 Respiratory Rate 18 Respiratory Rate 20 Respiratory Rate 18 Respiratory Rate 18 Blood Pressure [Left Arm] 155/80 Blood Pressure [Left Arm] 131/72 Blood Pressure 131/72 O2 Sat by Pulse Oximetry 98 O2 Sat by Pulse Oximetry 99 O2 Sat by Pulse Oximetry 98 Oriented: Normal, Time, Person and Place Eyes: Normal Ear: Normal Nose: Normal Throat: Normal Respiratory: Wheezes Throughout Cardiovascular: Irregular (Irregularly irregular rhythm) : Other (Consistent swelling of the scrotum and penis consistent with edema) Auscultation: Bowel Sounds: Normal Palpation: Normal Tenderness: Normal Skin: Wound (Small less than 1 cm pressure wound to the scrotum with some active bleeding due to the fact that he is on blood thinners, this is a pressure wound) Musculoskeletal: Normal Mood Description: Flat Affect: Flat Speech Pattern: Clear and Appropriate Plan (1) Atrial fibrillation: Status: Acute Plan: Continue home medications. Monitor patient (2) Hypertension: Status: Acute Plan: Home medications (3) Personal history of TIA (transient ischemic attack): Status: Acute Plan: Home medications (4) DM (diabetes mellitus), type 2 with renal complications: Status: Acute Plan: 1800-calorie ADA diet, home medications (5) Scrotal swelling: Status: Acute Plan: Swelling secondary to the surgery, age and protein deficiency. This is most relationship due to the surgery. This will resolve on its own. (6) Chronic renal failure, stage 3b: Status: Acute Plan: May require some Lasix. Patient with significant edema of his lower extremities as well (7) Compression of vein: Status: Acute Plan: This is most likely resolved after placement of the left common iliac vein stent
[2024-04-20 05:54] LABS: BASOPHILS % (AUTO) 0.3 % (0.2-1.0); EOSINOPHILS # (AUTO) 0.2 x10^3/uL (0.0-0.2); EOSINOPHILS % (AUTO) 1.9 % (0.9-2.9); HEMOGLOBIN 8.5 g/dL (13.5-18.0); LYMPHOCYTES % (AUTO) 8.3 % (21.0-51.0); MEAN CORPUSCULAR HEMOGLOBIN 26.5 pg (27.0-34.0); MEAN CORPUSCULAR HGB CONC 32.5 g/dL (33.0-35.0); MEAN CORPUSCULAR VOLUME 81.7 fL (80.0-100.0); MEAN PLATELET VOLUME 7.2 fL (7.4-11.0); MONOCYTES # (AUTO) 1.2 x10^3/uL (0.3-0.8); MONOCYTES % (AUTO) 9.7 % (0.0-13.0); NEUTROPHILS # (AUTO) 9.8 x10^3/uL (2.2-4.8); NEUTROPHILS % (AUTO) 79.8 % (42.0-75.0); PLATELET COUNT 235 X10^3/uL (150.0-450.0); RED BLOOD COUNT 3.19 X10^6/uL (4.7-6.0); WHITE BLOOD COUNT 12.3 X10^3/uL (3.6-10.0)
[2024-04-20 06:12] LABS: ALBUMIN 2.3 g/dL (3.4-5.0); CALCIUM 8.5 mg/dL (8.5-10.1); CARBON DIOXIDE 29.3 mmol/L (21-32); COR CA(FOR HYPOALB) 9.9 mg/dL (8.5-10.1); CREATININE 1.9 mg/dL (0.70-1.30); POTASSIUM 3.1 mmol/L (3.5-5.1); TOTAL PROTEIN 6.3 g/dL (6.4-8.2)
[2024-04-20 08:46] LABS: RETICULOCYTE % 2.41 % (0.8-2.2)
[2024-04-20] MEDS: ALBUMIN HUMAN 25%- 100 ML 100 ML IV SCH (11:06)
[2024-04-20] MEDS: LASIX IVP SCH (14:53)
[2024-04-20] MEDS: COLACE CAP 100 MG PO SCH (21:07)
--- NOTE | 2024-04-20 21:42 | NOTE.SOAP ---
Soap Note Note for Day of Date of Exam: 04/20/24 Subjective Data Subjective Data: Swelling improved of the testicles and around the penis but overall his anasarca around his pelvic region is the same. Has been undergoing diuresis as per Dr. Nguyen. Awaiting placement in swing bed. Objective Data Temperature: 98.5 F Pulse Rate: 83 Respiratory Rate: 19 Blood Pressure: 147/76 O2 Sat by Pulse Oximetry: 98 Objective Data: as above, Hgb=8.5, Cr=1.9 Assessment Assessment: Status post stenting of left common iliac vein complicated by retained foreign body requiring venotomy and removal. Patient with anasarca a round the pelvis. History of TAVR and has atrial fibrillation. Currently receiving diuresis. Plan Plan: Plan for swing bed when criteria met.
[2024-04-21 05:44] LABS: BASOPHILS % (AUTO) 0.2 % (0.2-1.0); EOSINOPHILS # (AUTO) 0.3 x10^3/uL (0.0-0.2); EOSINOPHILS % (AUTO) 2.7 % (0.9-2.9); HEMATOCRIT 24.6 % (42.0-54.0); HEMOGLOBIN 8.1 g/dL (13.5-18.0); LYMPHOCYTES # (AUTO) 0.8 X10^3/uL (1.3-2.9); LYMPHOCYTES % (AUTO) 7.2 % (21.0-51.0); MEAN CORPUSCULAR HEMOGLOBIN 26.8 pg (27.0-34.0); MEAN CORPUSCULAR HGB CONC 33.1 g/dL (33.0-35.0); MEAN PLATELET VOLUME 7.1 fL (7.4-11.0); MONOCYTES # (AUTO) 0.9 x10^3/uL (0.3-0.8); MONOCYTES % (AUTO) 8.1 % (0.0-13.0); NEUTROPHILS # (AUTO) 9.6 x10^3/uL (2.2-4.8); NEUTROPHILS % (AUTO) 81.8 % (42.0-75.0); PLATELET COUNT 240 X10^3/uL (150.0-450.0); RED BLOOD COUNT 3.04 X10^6/uL (4.7-6.0); RED CELL DISTRIBUTION WIDTH 19.6 % (11.6-16.5); WHITE BLOOD COUNT 11.7 X10^3/uL (3.6-10.0)
[2024-04-21] MEDS: MILK OF MAGNESIA PO PRN (05:45)
[2024-04-21 06:04] LABS: ALBUMIN 2.4 g/dL (3.4-5.0); CALCIUM 8.5 mg/dL (8.5-10.1); CARBON DIOXIDE 31.1 mmol/L (21-32); COR CA(FOR HYPOALB) 9.8 mg/dL (8.5-10.1); CREATININE 1.85 mg/dL (0.70-1.30); MAGNESIUM 1.7 mg/dL (2.0-2.9); TOTAL PROTEIN 6.3 g/dL (6.4-8.2)
[2024-04-21 06:05] LABS: POTASSIUM 2.7 mmol/L (3.5-5.1)
[2024-04-21] MEDS ORDERED: CONSULT PHARMACY - POTASSIUM & MAGNESIUM XX SCH (07:00)
[2024-04-21] MEDS ORDERED: K-DUR TAB 20 MEQ PO SCH (09:00)
[2024-04-21] MEDS: MAG-OX TAB PO SCH (09:18)
[2024-04-21] MEDS: K-DUR TAB 20 MEQ PO SCH (09:20)
[2024-04-21 09:26] LABS: CREATININE 1.77 mg/dL (0.70-1.30); VANCOMYCIN,TROUGH 14.3 ug/mL (15-20)
[2024-04-21] MEDS: MAGNESIUM SULFATE 1 GRAM/100 mL PREMIX 1 G/100 ML BAG IV SCH (09:39)
[2024-04-21] MEDS: KLOR-CON 10 MEQ TAB PO ONE (10:20)
[2024-04-21] MEDS: RHINOCORT ALLERGY NASAL SPRAY ENOSTRIL SCH (10:21)
[2024-04-21] MEDS: PHARMACY COMMENT IV ONE (10:36)
[2024-04-21] MEDS ORDERED: COLACE CAP 100 MG PO SCH (21:00)
[2024-04-21] MEDS: MIRALAX POWDER (1 DOSE 17 G) PO SCH (21:17)
[2024-04-22] MEDS ORDERED: NS 250 ML IV 250 ML IV ONE (02:36)
[2024-04-22] MEDS: NS 250 ML IV 250 ML IV PRN (05:33)
[2024-04-22 06:30] LABS: BASOPHILS # (AUTO) 0.1 X10^3/uL (0.0-0.1); BASOPHILS % (AUTO) 0.4 % (0.2-1.0); EOSINOPHILS # (AUTO) 0.3 x10^3/uL (0.0-0.2); EOSINOPHILS % (AUTO) 2.7 % (0.9-2.9); HEMATOCRIT 24.9 % (42.0-54.0); HEMOGLOBIN 8.2 g/dL (13.5-18.0); LYMPHOCYTES # (AUTO) 0.8 X10^3/uL (1.3-2.9); LYMPHOCYTES % (AUTO) 6.9 % (21.0-51.0); MEAN CORPUSCULAR HEMOGLOBIN 26.7 pg (27.0-34.0); MEAN CORPUSCULAR HGB CONC 32.8 g/dL (33.0-35.0); MEAN CORPUSCULAR VOLUME 81.2 fL (80.0-100.0); MEAN PLATELET VOLUME 7.2 fL (7.4-11.0); MONOCYTES # (AUTO) 0.7 x10^3/uL (0.3-0.8); MONOCYTES % (AUTO) 5.7 % (0.0-13.0); NEUTROPHILS # (AUTO) 10.4 x10^3/uL (2.2-4.8); NEUTROPHILS % (AUTO) 84.3 % (42.0-75.0); PLATELET COUNT 267 X10^3/uL (150.0-450.0); RED BLOOD COUNT 3.07 X10^6/uL (4.7-6.0); RED CELL DISTRIBUTION WIDTH 19.7 % (11.6-16.5); WHITE BLOOD COUNT 12.3 X10^3/uL (3.6-10.0)
[2024-04-22 06:55] LABS: ALBUMIN 2.6 g/dL (3.4-5.0); CALCIUM 8.5 mg/dL (8.5-10.1); CARBON DIOXIDE 30.7 mmol/L (21-32); COR CA(FOR HYPOALB) 9.6 mg/dL (8.5-10.1); CREATININE 1.79 mg/dL (0.70-1.30); MAGNESIUM 2.1 mg/dL (2.0-2.9); POTASSIUM 3.2 mmol/L (3.5-5.1); TOTAL PROTEIN 6.5 g/dL (6.4-8.2)
[2024-04-22] MEDS: MAG-OX TAB ONE (08:19)
[2024-04-22] MEDS: ELIQUIS PO SCH (09:49)
[2024-04-22] MEDS: ASTELIN NASAL SPRAY ENOSTRIL SCH (09:49)
[2024-04-22] MEDS: ASTELIN NASAL SPRAY ENOSTRIL ONE (10:12)
[2024-04-22] MEDS: LINZESS PO SCH (11:15)
[2024-04-22] MEDS: LASIX IVP ONE (15:06)
[2024-04-22] MEDS: LASIX ONE (17:18)
[2024-04-22 20:00] LABS: HEMOGLOBIN 10.5 g/dL (13.5-18.0)
[2024-04-23 06:15] LABS: BASOPHILS # (AUTO) 0.1 X10^3/uL (0.0-0.1); BASOPHILS % (AUTO) 0.4 % (0.2-1.0); EOSINOPHILS # (AUTO) 0.3 x10^3/uL (0.0-0.2); EOSINOPHILS % (AUTO) 2.2 % (0.9-2.9); HEMATOCRIT 30.6 % (42.0-54.0); HEMOGLOBIN 10.4 g/dL (13.5-18.0); LYMPHOCYTES # (AUTO) 0.7 X10^3/uL (1.3-2.9); LYMPHOCYTES % (AUTO) 5.3 % (21.0-51.0); MEAN CORPUSCULAR HEMOGLOBIN 27.4 pg (27.0-34.0); MEAN CORPUSCULAR HGB CONC 34.1 g/dL (33.0-35.0); MEAN CORPUSCULAR VOLUME 80.5 fL (80.0-100.0); MONOCYTES # (AUTO) 0.9 x10^3/uL (0.3-0.8); MONOCYTES % (AUTO) 6.5 % (0.0-13.0); NEUTROPHILS # (AUTO) 11.6 x10^3/uL (2.2-4.8); NEUTROPHILS % (AUTO) 85.6 % (42.0-75.0); PLATELET COUNT 296 X10^3/uL (150.0-450.0); RED BLOOD COUNT 3.81 X10^6/uL (4.7-6.0); RED CELL DISTRIBUTION WIDTH 17.9 % (11.6-16.5); WHITE BLOOD COUNT 13.5 X10^3/uL (3.6-10.0)
[2024-04-23 06:30] LABS: ALBUMIN 2.9 g/dL (3.4-5.0); CALCIUM 8.9 mg/dL (8.5-10.1); CARBON DIOXIDE 29.8 mmol/L (21-32); COR CA(FOR HYPOALB) 9.8 mg/dL (8.5-10.1); CREATININE 1.66 mg/dL (0.70-1.30); MAGNESIUM 1.9 mg/dL (2.0-2.9); POTASSIUM 3.3 mmol/L (3.5-5.1); TOTAL PROTEIN 7.1 g/dL (6.4-8.2)
[2024-04-23] MEDS ORDERED: CONSULT PHARMACY - POTASSIUM & MAGNESIUM XX SCH (07:00)
[2024-04-23] MEDS: MAG-OX TAB PO SCH (08:24)
--- NOTE | 2024-04-23 10:06 | RAD ---
EXAM: Acute abdominal series HISTORY: Congestive heart failure COMPARISON: 04/13/2024 FINDINGS: There is a right-sided ventriculoperitoneal shunt tube present. Hypoinflation accentuates the hear t size. It is likely still enlarged. Cee are normal. Aorta is calcified. Interstitial lung leach es are present and stable. No definite acute alveolar infiltrates are identified. There may be some fluid in the minor fissure on the right. No left pleural effusion is identified. Abdominal gas pat tern is nonspecific and nonobstructive. No abnormal masses or abnormal calcifications are identified . No pneumoperitoneum is present. Left common iliac venous stent identified. Regional skeleton marcos ears intact. IMPRESSION: Cardiomegaly without congestive heart failure Stable interstitial lung changes Nonspecific nonobstructive bowel gas pattern THIS IS AN ELECTRONICALLY VERIFIED FINAL REPORT 04/23/2024 8:46 AM - Electronically signed by Domingo Brunner MD
[2024-04-23] MEDS: JANUVIA PO SCH (10:57)
[2024-04-23] MEDS: TOPROL XL PO SCH (10:57)
[2024-04-23] MEDS: DULCOLAX SUPPOSITORY 10 MG RECTAL ONE (10:58)
[2024-04-23] MEDS: BUSPAR PO SCH (10:58)
[2024-04-23] MEDS: LASIX IVP SCH (13:14)
[2024-04-23] MEDS: TOPROL XL PO ONE (14:25)
[2024-04-24 07:13] LABS: BASOPHILS # (AUTO) 0.1 X10^3/uL (0.0-0.1); BASOPHILS % (AUTO) 0.4 % (0.2-1.0); EOSINOPHILS # (AUTO) 0.2 x10^3/uL (0.0-0.2); EOSINOPHILS % (AUTO) 1.2 % (0.9-2.9); HEMATOCRIT 29.5 % (42.0-54.0); HEMOGLOBIN 9.8 g/dL (13.5-18.0); LYMPHOCYTES # (AUTO) 0.9 X10^3/uL (1.3-2.9); LYMPHOCYTES % (AUTO) 5.1 % (21.0-51.0); MEAN CORPUSCULAR HEMOGLOBIN 26.9 pg (27.0-34.0); MEAN CORPUSCULAR HGB CONC 33.3 g/dL (33.0-35.0); MEAN CORPUSCULAR VOLUME 80.8 fL (80.0-100.0); MEAN PLATELET VOLUME 6.9 fL (7.4-11.0); MONOCYTES # (AUTO) 1.3 x10^3/uL (0.3-0.8); NEUTROPHILS % (AUTO) 86.3 % (42.0-75.0); PLATELET COUNT 293 X10^3/uL (150.0-450.0); RED BLOOD COUNT 3.66 X10^6/uL (4.7-6.0); RED CELL DISTRIBUTION WIDTH 17.8 % (11.6-16.5); WHITE BLOOD COUNT 18.5 X10^3/uL (3.6-10.0)
[2024-04-24 07:30] LABS: ALBUMIN 2.9 g/dL (3.4-5.0); CALCIUM 9.1 mg/dL (8.5-10.1); CARBON DIOXIDE 31.1 mmol/L (21-32); CREATININE 1.83 mg/dL (0.70-1.30); MAGNESIUM 2.2 mg/dL (2.0-2.9); POTASSIUM 3.4 mmol/L (3.5-5.1)
[2024-04-24] MEDS ORDERED: CONSULT PHARMACY - POTASSIUM & MAGNESIUM XX SCH (07:40)
[2024-04-24] MEDS: LINZESS PO SCH (08:08)
--- NOTE | 2024-04-24 09:10 | RAD ---
EXAM:CHEST, 1 VIEWHISTORY:Possible fluid overload;COMPARISON:04/23/2024, 04/13/2024FINDINGS:Underinflation. Stable cardiomegaly. Diffuse interstitial thickening and hazy opacities are similar to prior with possible small left pleural effusion. No visible pneumothorax. Shunt tubing overlies the right chest. Aortic calcifications.IMPRESSION:Probable CHF. Superimposed infection would be difficult to exclude. Overall this appears slightly worse than prior.THIS IS AN ELECTRONICALLY VERIFIED FINAL REPORT04/24/2024 9:07 AM - Electronically signed by Andre Montague MD
[2024-04-24] MEDS ORDERED: NS 250 ML IV 25 ML IV PRN (09:56)
[2024-04-24] MEDS: ZYVOX 600MG IV 600 MG/300 ML BAG IV SCH (10:29)
[2024-04-24] MEDS: ZOSYN VIAL 2.25 GRAMS 2.25 G in NS 100 ML IV 100 ML IV SCH (11:43)
[2024-04-24] MEDS: CARDIZEM CD 120 MG 24-HR PO STA (11:55)
[2024-04-24 12:14] LABS: BILIRUBIN,URINE NEGATIVE (NEGATIVE); BLOOD/HEMOGLOBIN,URINE 5+ (NEGATIVE); GLUCOSE, URINE NEGATIVE (NEGATIVE); KETONES,URINE NEGATIVE (NEGATIVE); LEUKOCYTE ESTERASE ,URINE 2+ (NEGATIVE); NITRITES,URINE NEGATIVE (NEGATIVE); PROTEIN,URINE 4+ (NEGATIVE); UROBILINOGEN,URINE NORMAL (NORMAL)
[2024-04-24 12:17] LABS: APPEARANCE,URINE CLOUDY (CLEAR); COLOR,URINE YELLOW (YELLOW)
[2024-04-24 12:22] LABS: BACTERIA,URINE 3+ /HPF (NEGATIVE); GRANULAR CASTS,URINE FEW /LPF (NEGATIVE); HYALINE CASTS, URINE RARE /LPF (NEGATIVE); RBC,URINE TNTC /HPF (0-3); SQUAMOUS EPITHELIAL CELL,UR RARE /HPF (NEGATIVE)
[2024-04-25] MEDS: LASIX IVP PRN (03:51)
[2024-04-25 06:41] LABS: BASOPHILS % (AUTO) 0.3 % (0.2-1.0); EOSINOPHILS # (AUTO) 0.5 x10^3/uL (0.0-0.2); EOSINOPHILS % (AUTO) 2.6 % (0.9-2.9); HEMATOCRIT 26.8 % (42.0-54.0); LYMPHOCYTES # (AUTO) 0.7 X10^3/uL (1.3-2.9); LYMPHOCYTES % (AUTO) 3.7 % (21.0-51.0); MEAN CORPUSCULAR HEMOGLOBIN 27.2 pg (27.0-34.0); MEAN CORPUSCULAR HGB CONC 33.5 g/dL (33.0-35.0); MEAN CORPUSCULAR VOLUME 81.3 fL (80.0-100.0); MEAN PLATELET VOLUME 7.3 fL (7.4-11.0); MONOCYTES % (AUTO) 5.2 % (0.0-13.0); NEUTROPHILS # (AUTO) 16.1 x10^3/uL (2.2-4.8); NEUTROPHILS % (AUTO) 88.2 % (42.0-75.0); PLATELET COUNT 282 X10^3/uL (150.0-450.0); RED CELL DISTRIBUTION WIDTH 18.3 % (11.6-16.5); WHITE BLOOD COUNT 18.3 X10^3/uL (3.6-10.0)
[2024-04-25 06:59] LABS: ALBUMIN 2.9 g/dL (3.4-5.0); CALCIUM 8.8 mg/dL (8.5-10.1); COR CA(FOR HYPOALB) 9.7 mg/dL (8.5-10.1); CREATININE 2.16 mg/dL (0.70-1.30); MAGNESIUM 2.3 mg/dL (2.0-2.9); POTASSIUM 3.8 mmol/L (3.5-5.1); TOTAL PROTEIN 6.6 g/dL (6.4-8.2)
[2024-04-25] MEDS: CARDIZEM CD 240 MG 24-HR PO SCH (08:35)
[2024-04-25] MEDS: DEMADEX PO SCH (08:35)
[2024-04-25] MEDS ORDERED: CARDIZEM CD 360 MG 24-HR PO SCH (09:00)
[2024-04-25] MEDS: LEVAQUIN PREMIX IV 500 MG 500 MG/100 ML BAG IV SCH (14:02)
[2024-04-25] MEDS: TYGACIL 50 MG VIAL 100 MG in NS 100 ML IV 100 ML IV ONE (14:27)
[2024-04-25] MEDS: LASIX IVP SCH (14:28)
[2024-04-25] MEDS: NS 500 ML IV 500 ML IV ONE (14:37)
[2024-04-25] MEDS: TYGACIL 50 MG VIAL 50 MG in NS 100 ML IV 100 ML IV SCH (23:24)
[2024-04-26 06:56] LABS: BASOPHILS # (AUTO) 0.1 X10^3/uL (0.0-0.1); BASOPHILS % (AUTO) 0.3 % (0.2-1.0); EOSINOPHILS # (AUTO) 0.5 x10^3/uL (0.0-0.2); EOSINOPHILS % (AUTO) 2.5 % (0.9-2.9); HEMATOCRIT 28.4 % (42.0-54.0); HEMOGLOBIN 9.5 g/dL (13.5-18.0); MEAN CORPUSCULAR HEMOGLOBIN 27.1 pg (27.0-34.0); MEAN CORPUSCULAR HGB CONC 33.3 g/dL (33.0-35.0); MEAN CORPUSCULAR VOLUME 81.3 fL (80.0-100.0); MEAN PLATELET VOLUME 7.3 fL (7.4-11.0); MONOCYTES # (AUTO) 0.9 x10^3/uL (0.3-0.8); MONOCYTES % (AUTO) 4.3 % (0.0-13.0); NEUTROPHILS # (AUTO) 17.8 x10^3/uL (2.2-4.8); NEUTROPHILS % (AUTO) 87.9 % (42.0-75.0); PLATELET COUNT 402 X10^3/uL (150.0-450.0); RED CELL DISTRIBUTION WIDTH 18.2 % (11.6-16.5); WHITE BLOOD COUNT 20.2 X10^3/uL (3.6-10.0)
[2024-04-26 07:17] LABS: ALBUMIN 2.8 g/dL (3.4-5.0); CALCIUM 9.1 mg/dL (8.5-10.1); COR CA(FOR HYPOALB) 10.1 mg/dL (8.5-10.1); CREATININE 2.44 mg/dL (0.70-1.30); POTASSIUM 4.5 mmol/L (3.5-5.1)
[2024-04-26] MEDS: LEVAQUIN PREMIX IV 250 MG 250 MG/50 ML BAG IV SCH (08:57)
[2024-04-26] MEDS ORDERED: DEMADEX PO SCH (09:00)
[2024-04-26] MEDS: FORTAZ or TAZICEF VIAL INJ 1 G in NS 100 ML IV 100 ML IV SCH (10:06)
[2024-04-26] MEDS: CIPRO IV 400 MG PREMIX* 400 MG/200 ML IV.SOLN. IV SCH (10:06)
--- NOTE | 2024-04-26 12:17 | NOTE.SOAP ---
Soap Note Note for Day of Date of Exam: 04/26/24 Subjective Data Subjective Data: Overall patient swelling improved but not resolved. Healing laurence in the left groin. Objective Data Temperature: 97.4 F Pulse Rate: 80 Respiratory Rate: 17 Blood Pressure: 138/67 O2 Sat by Pulse Oximetry: 92 Objective Data: Still with pitting edema of the pelvis and upper thighs. Healing left groin wound Assessment Assessment: Healing left groin wound after stenting of left iliac vein and removal of foreign body Plan Plan: Nurses to remove laurence left groin and placed Steri-Strips.
[2024-04-27 06:16] LABS: BASOPHILS % (AUTO) 0.2 % (0.2-1.0); EOSINOPHILS # (AUTO) 0.5 x10^3/uL (0.0-0.2); EOSINOPHILS % (AUTO) 3.2 % (0.9-2.9); HEMATOCRIT 27.7 % (42.0-54.0); HEMOGLOBIN 9.2 g/dL (13.5-18.0); LYMPHOCYTES # (AUTO) 0.8 X10^3/uL (1.3-2.9); LYMPHOCYTES % (AUTO) 5.2 % (21.0-51.0); MEAN CORPUSCULAR HEMOGLOBIN 27.1 pg (27.0-34.0); MEAN CORPUSCULAR HGB CONC 33.1 g/dL (33.0-35.0); MEAN CORPUSCULAR VOLUME 81.9 fL (80.0-100.0); MEAN PLATELET VOLUME 7.4 fL (7.4-11.0); MONOCYTES # (AUTO) 0.8 x10^3/uL (0.3-0.8); MONOCYTES % (AUTO) 5.1 % (0.0-13.0); NEUTROPHILS # (AUTO) 13.4 x10^3/uL (2.2-4.8); NEUTROPHILS % (AUTO) 86.3 % (42.0-75.0); PLATELET COUNT 376 X10^3/uL (150.0-450.0); RED BLOOD COUNT 3.38 X10^6/uL (4.7-6.0); RED CELL DISTRIBUTION WIDTH 18.1 % (11.6-16.5); WHITE BLOOD COUNT 15.5 X10^3/uL (3.6-10.0)
--- NOTE | 2024-04-27 06:21 | RAD ---
EXAM:Portable chestHISTORY:Worsening renal functionCOMPARISON:04/24/2024, /[id number]:There is a right-sided OPERATIONS DISPATCHER shunt tube visible. Patient is rotated slightly to the left and also tilted to the left. Hypoinflation accentuates the heart size it is likely upper limits normal or within normal limits. Patient is status post TAVR. Worsening interstitial lung changes are present likely interstitial edema superimposed on more chronic lung changes. No alveolar edema identified. No alveolar infiltrates or areas of consolidation. No definite pleural effusions. There is subsegmental atelectasis at the right lung base which is a new finding. Bony thorax is unremarkable.IMPRESSION:Worsening diffuse interstitial lung changes likely interstitial edema superimposed on more chronic interstitial lung diseaseHypoinflationSubsegmental atelectasis right lung base.THIS IS AN ELECTRONICALLY VERIFIED FINAL REPORT04/27/2024 6:18 AM - Electronically signed by Domingo Brunner MD
[2024-04-27 06:36] LABS: ALBUMIN 2.8 g/dL (3.4-5.0); CALCIUM 8.9 mg/dL (8.5-10.1); CARBON DIOXIDE 27.9 mmol/L (21-32); COR CA(FOR HYPOALB) 9.9 mg/dL (8.5-10.1); CREATININE 2.64 mg/dL (0.70-1.30); POTASSIUM 4.7 mmol/L (3.5-5.1); TOTAL PROTEIN 6.7 g/dL (6.4-8.2)
[2024-04-27] MEDS: ALBUMIN HUMAN 25%- 100 ML 100 ML IV SCH (09:25)
[2024-04-27] MEDS: NS 1,000 ML IV 1,000 ML IV ONE (11:56)
[2024-04-27] MEDS: KLOR-CON PO SCH (21:38)
[2024-04-28 08:32] LABS: BASOPHILS # (AUTO) 0.1 X10^3/uL (0.0-0.1); BASOPHILS % (AUTO) 0.5 % (0.2-1.0); EOSINOPHILS # (AUTO) 0.4 x10^3/uL (0.0-0.2); EOSINOPHILS % (AUTO) 2.4 % (0.9-2.9); HEMATOCRIT 26.9 % (42.0-54.0); LYMPHOCYTES # (AUTO) 0.7 X10^3/uL (1.3-2.9); LYMPHOCYTES % (AUTO) 4.9 % (21.0-51.0); MEAN CORPUSCULAR HEMOGLOBIN 27.4 pg (27.0-34.0); MEAN CORPUSCULAR HGB CONC 33.4 g/dL (33.0-35.0); MEAN CORPUSCULAR VOLUME 82.1 fL (80.0-100.0); MEAN PLATELET VOLUME 7.4 fL (7.4-11.0); MONOCYTES # (AUTO) 0.8 x10^3/uL (0.3-0.8); MONOCYTES % (AUTO) 5.1 % (0.0-13.0); NEUTROPHILS # (AUTO) 13.1 x10^3/uL (2.2-4.8); NEUTROPHILS % (AUTO) 87.1 % (42.0-75.0); PLATELET COUNT 380 X10^3/uL (150.0-450.0); RED BLOOD COUNT 3.28 X10^6/uL (4.7-6.0); RED CELL DISTRIBUTION WIDTH 18.5 % (11.6-16.5); WHITE BLOOD COUNT 15.1 X10^3/uL (3.6-10.0)
[2024-04-28 08:58] LABS: ALBUMIN 3.1 g/dL (3.4-5.0); CALCIUM 9.2 mg/dL (8.5-10.1); COR CA(FOR HYPOALB) 9.9 mg/dL (8.5-10.1); CREATININE 2.68 mg/dL (0.70-1.30); POTASSIUM 4.3 mmol/L (3.5-5.1); TOTAL PROTEIN 6.9 g/dL (6.4-8.2)
--- NOTE | 2024-04-28 10:03 | NOTE.SOAP ---
Soap Note Note for Day of Date of Exam: 04/28/24 Subjective Data Subjective Data: See previous notes. Patient had laurence removed from the left groin and it is doing well. Still with significant edema of the lower extremities and total body Objective Data Temperature: 97.5 F Pulse Rate: 81 Respiratory Rate: 20 Blood Pressure: 149/74 O2 Sat by Pulse Oximetry: 96 Objective Data: As above. Assessment Assessment: Status post stenting of left common iliac vein with swelling. Wound now healed Plan Plan: Seeking long-term placement. Right iliac vein stenting will be delayed at this time
[2024-04-28] MEDS: DEMADEX PO SCH (10:20)
[2024-04-28] MEDS: NS 1,000 ML IV 1,000 ML IV SCH (10:45)
--- NOTE | 2024-04-28 11:48 | RAD ---
EXAM:CHEST, 1 VIEWHISTORY:SOB;COMPARISON:Prior study or studies were utilized for comparison during interpretation with the most relevant dated 04/26/2024TECHNIQUE:CHEST, 1 VIEWFINDINGS:Chest:Lines and tubes: PHYSICIAN OFFICE SECRETARY shunt catheter projects over the right chestMediastinum: Cardiomegaly.Pulmonary vessels: There is pulmonary vascular congestion.Lung david: Patchy opacities are worsening compared to 2 days agoPleura: No effusion. No pneumothorax.Bones and soft tissues: No acute osseous or soft tissue abnormality.IMPRESSION:1. Heart failure versus pneumonia with worsening airspace opacitiesTHIS IS AN ELECTRONICALLY VERIFIED FINAL REPORT04/28/2024 11:45 AM - Electronically signed by Ravindra Choe MD
[2024-04-28] MEDS: BUTT CREAM (COMPOUND) TOP PRN (15:42)
[2024-04-29 06:22] LABS: BASOPHILS # (AUTO) 0.1 X10^3/uL (0.0-0.1); BASOPHILS % (AUTO) 0.4 % (0.2-1.0); EOSINOPHILS # (AUTO) 0.3 x10^3/uL (0.0-0.2); EOSINOPHILS % (AUTO) 2.5 % (0.9-2.9); HEMATOCRIT 25.9 % (42.0-54.0); HEMOGLOBIN 8.5 g/dL (13.5-18.0); LYMPHOCYTES # (AUTO) 0.8 X10^3/uL (1.3-2.9); LYMPHOCYTES % (AUTO) 5.5 % (21.0-51.0); MEAN CORPUSCULAR HEMOGLOBIN 27.1 pg (27.0-34.0); MEAN CORPUSCULAR HGB CONC 32.8 g/dL (33.0-35.0); MEAN CORPUSCULAR VOLUME 82.7 fL (80.0-100.0); MEAN PLATELET VOLUME 7.6 fL (7.4-11.0); MONOCYTES # (AUTO) 0.8 x10^3/uL (0.3-0.8); MONOCYTES % (AUTO) 5.8 % (0.0-13.0); NEUTROPHILS # (AUTO) 11.6 x10^3/uL (2.2-4.8); NEUTROPHILS % (AUTO) 85.8 % (42.0-75.0); PLATELET COUNT 338 X10^3/uL (150.0-450.0); RED BLOOD COUNT 3.13 X10^6/uL (4.7-6.0); RED CELL DISTRIBUTION WIDTH 18.4 % (11.6-16.5); WHITE BLOOD COUNT 13.6 X10^3/uL (3.6-10.0)
[2024-04-29 06:37] LABS: ALBUMIN 3.2 g/dL (3.4-5.0); CALCIUM 9.1 mg/dL (8.5-10.1); CARBON DIOXIDE 26.4 mmol/L (21-32); COR CA(FOR HYPOALB) 9.7 mg/dL (8.5-10.1); CREATININE 2.3 mg/dL (0.70-1.30); TOTAL PROTEIN 6.7 g/dL (6.4-8.2)
[2024-04-29] MEDS: JANUVIA PO SCH (09:26)
[2024-04-29] MEDS: LASIX IVP SCH (10:10)
[2024-04-29] MEDS: NS 100 ML IV 100 ML with VENOFER 100 MG IV ONE (11:31)
[2024-04-29] MEDS: PROCRIT or EPOGEN VIAL 10,000 UNITS SC ONE (11:32)
[2024-04-30 06:32] LABS: BASOPHILS # (AUTO) 0.1 X10^3/uL (0.0-0.1); BASOPHILS % (AUTO) 0.4 % (0.2-1.0); EOSINOPHILS # (AUTO) 0.4 x10^3/uL (0.0-0.2); EOSINOPHILS % (AUTO) 2.4 % (0.9-2.9); HEMATOCRIT 24.8 % (42.0-54.0); HEMOGLOBIN 8.3 g/dL (13.5-18.0); LYMPHOCYTES # (AUTO) 0.9 X10^3/uL (1.3-2.9); LYMPHOCYTES % (AUTO) 5.9 % (21.0-51.0); MEAN CORPUSCULAR HEMOGLOBIN 27.7 pg (27.0-34.0); MEAN CORPUSCULAR HGB CONC 33.4 g/dL (33.0-35.0); MEAN CORPUSCULAR VOLUME 82.7 fL (80.0-100.0); MEAN PLATELET VOLUME 7.4 fL (7.4-11.0); MONOCYTES # (AUTO) 0.8 x10^3/uL (0.3-0.8); MONOCYTES % (AUTO) 5.7 % (0.0-13.0); NEUTROPHILS # (AUTO) 12.5 x10^3/uL (2.2-4.8); NEUTROPHILS % (AUTO) 85.6 % (42.0-75.0); PLATELET COUNT 324 X10^3/uL (150.0-450.0); RED CELL DISTRIBUTION WIDTH 18.5 % (11.6-16.5); WHITE BLOOD COUNT 14.6 X10^3/uL (3.6-10.0)
[2024-04-30 06:50] LABS: ALBUMIN 3.3 g/dL (3.4-5.0); CALCIUM 8.7 mg/dL (8.5-10.1); COR CA(FOR HYPOALB) 9.3 mg/dL (8.5-10.1); CREATININE 2.2 mg/dL (0.70-1.30); POTASSIUM 4.2 mmol/L (3.5-5.1); TOTAL PROTEIN 6.6 g/dL (6.4-8.2)
[2024-04-30] MEDS: LINZESS PO SCH (08:51)
[2024-05-01] MEDS: GLUCOTROL XL 24-HR PO SCH (06:16)
[2024-05-01 06:52] LABS: BASOPHILS # (AUTO) 0.1 X10^3/uL (0.0-0.1); BASOPHILS % (AUTO) 0.4 % (0.2-1.0); EOSINOPHILS # (AUTO) 0.3 x10^3/uL (0.0-0.2); HEMATOCRIT 24.7 % (42.0-54.0); LYMPHOCYTES # (AUTO) 0.9 X10^3/uL (1.3-2.9); LYMPHOCYTES % (AUTO) 6.3 % (21.0-51.0); MEAN CORPUSCULAR HEMOGLOBIN 27.2 pg (27.0-34.0); MEAN CORPUSCULAR HGB CONC 32.6 g/dL (33.0-35.0); MEAN CORPUSCULAR VOLUME 83.4 fL (80.0-100.0); MEAN PLATELET VOLUME 7.5 fL (7.4-11.0); MONOCYTES # (AUTO) 0.8 x10^3/uL (0.3-0.8); MONOCYTES % (AUTO) 5.3 % (0.0-13.0); NEUTROPHILS # (AUTO) 12.6 x10^3/uL (2.2-4.8); PLATELET COUNT 311 X10^3/uL (150.0-450.0); RED BLOOD COUNT 2.95 X10^6/uL (4.7-6.0); RED CELL DISTRIBUTION WIDTH 18.6 % (11.6-16.5); WHITE BLOOD COUNT 14.6 X10^3/uL (3.6-10.0)
[2024-05-01 06:57] LABS: ALBUMIN 3.3 g/dL (3.4-5.0); CALCIUM 8.8 mg/dL (8.5-10.1); CARBON DIOXIDE 26.8 mmol/L (21-32); COR CA(FOR HYPOALB) 9.4 mg/dL (8.5-10.1); CREATININE 2.28 mg/dL (0.70-1.30); POTASSIUM 4.3 mmol/L (3.5-5.1); TOTAL PROTEIN 6.5 g/dL (6.4-8.2)
[2024-05-01 07:50] LABS: ANISOCYTOSIS SLIGHT; PLATELET MORPHOLOGY COMMENT NORMAL (NORMAL)
[2024-05-01] MEDS: PROCRIT or EPOGEN VIAL 10,000 UNITS SC ONE (10:21)
[2024-05-01] MEDS: LASIX IVP SCH (13:24)
[2024-05-02 06:56] LABS: BASOPHILS # (AUTO) 0.1 X10^3/uL (0.0-0.1); BASOPHILS % (AUTO) 0.7 % (0.2-1.0); EOSINOPHILS # (AUTO) 0.4 x10^3/uL (0.0-0.2); EOSINOPHILS % (AUTO) 2.7 % (0.9-2.9); HEMATOCRIT 24.2 % (42.0-54.0); HEMOGLOBIN 7.9 g/dL (13.5-18.0); LYMPHOCYTES # (AUTO) 0.6 X10^3/uL (1.3-2.9); LYMPHOCYTES % (AUTO) 4.2 % (21.0-51.0); MEAN CORPUSCULAR HEMOGLOBIN 27.4 pg (27.0-34.0); MEAN CORPUSCULAR HGB CONC 32.6 g/dL (33.0-35.0); MEAN CORPUSCULAR VOLUME 84.2 fL (80.0-100.0); MEAN PLATELET VOLUME 7.7 fL (7.4-11.0); MONOCYTES # (AUTO) 0.7 x10^3/uL (0.3-0.8); MONOCYTES % (AUTO) 4.8 % (0.0-13.0); NEUTROPHILS # (AUTO) 13.5 x10^3/uL (2.2-4.8); NEUTROPHILS % (AUTO) 87.6 % (42.0-75.0); PLATELET COUNT 327 X10^3/uL (150.0-450.0); RED BLOOD COUNT 2.88 X10^6/uL (4.7-6.0); RED CELL DISTRIBUTION WIDTH 18.7 % (11.6-16.5); WHITE BLOOD COUNT 15.4 X10^3/uL (3.6-10.0)
[2024-05-02 07:06] LABS: ALANINE AMINOTRANSFERASE 42 Units/L (12-78); ALBUMIN 3.6 g/dL (3.4-5.0); ALKALINE PHOSPHATASE 73 Units/L (46-116); ASPARTATE AMINO TRANSFERASE 26 Units/L (15-37); BLOOD UREA NITROGEN 77 mg/dL (7-18); CALCIUM 8.9 mg/dL (8.5-10.1); CARBON DIOXIDE 26.4 mmol/L (21-32); CHLORIDE 107 mmol/L (98-107); COR NA(FOR HYPERGLY) 143 mmol/L (136-145); CREATININE 2.25 mg/dL (0.70-1.30); GLUCOSE 141 mg/dL (65-99); POTASSIUM 4.5 mmol/L (3.5-5.1); SODIUM 142 mmol/L (136-145); TOTAL PROTEIN 6.7 g/dL (6.4-8.2); eGFR NON BLACK RACES 30 (>60)
[2024-05-03 06:23] LABS: EOSINOPHILS # (AUTO) 0.2 x10^3/uL (0.0-0.2); EOSINOPHILS % (AUTO) 1.3 % (0.9-2.9); HEMATOCRIT 22.4 % (42.0-54.0); HEMOGLOBIN 7.3 g/dL (13.5-18.0); MONOCYTES # (AUTO) 0.8 x10^3/uL (0.3-0.8); NEUTROPHILS # (AUTO) 13.2 x10^3/uL (2.2-4.8); WHITE BLOOD COUNT 15.1 X10^3/uL (3.6-10.0)
[2024-05-03 06:32] LABS: BASOPHILS # (AUTO) 0.1 X10^3/uL (0.0-0.1); BASOPHILS % (AUTO) 0.4 % (0.2-1.0); LYMPHOCYTES # (AUTO) 0.9 X10^3/uL (1.3-2.9); LYMPHOCYTES % (AUTO) 5.7 % (21.0-51.0); MEAN CORPUSCULAR HEMOGLOBIN 27.7 pg (27.0-34.0); MEAN CORPUSCULAR HGB CONC 32.7 g/dL (33.0-35.0); MEAN CORPUSCULAR VOLUME 84.6 fL (80.0-100.0); MEAN PLATELET VOLUME 7.6 fL (7.4-11.0); MONOCYTES % (AUTO) 5.5 % (0.0-13.0); NEUTROPHILS % (AUTO) 87.1 % (42.0-75.0); PLATELET COUNT 310 X10^3/uL (150.0-450.0); RED BLOOD COUNT 2.64 X10^6/uL (4.7-6.0); RED CELL DISTRIBUTION WIDTH 19.1 % (11.6-16.5)
[2024-05-03 06:41] LABS: ALANINE AMINOTRANSFERASE 39 Units/L (12-78); ALBUMIN 3.6 g/dL (3.4-5.0); ALKALINE PHOSPHATASE 68 Units/L (46-116); ASPARTATE AMINO TRANSFERASE 19 Units/L (15-37); BLOOD UREA NITROGEN 84 mg/dL (7-18); CALCIUM 8.9 mg/dL (8.5-10.1); CARBON DIOXIDE 25.6 mmol/L (21-32); CHLORIDE 107 mmol/L (98-107); COR NA(FOR HYPERGLY) 144 mmol/L (136-145); CREATININE 2.44 mg/dL (0.70-1.30); GLUCOSE 172 mg/dL (65-99); POTASSIUM 4.6 mmol/L (3.5-5.1); SODIUM 142 mmol/L (136-145); TOTAL PROTEIN 6.6 g/dL (6.4-8.2); eGFR NON BLACK RACES 27 (>60)
--- NOTE | 2024-05-03 07:57 | RAD ---
EXAM:CHEST, 1 VIEWHISTORY:SOB;COMPARISON:Prior study or studies were utilized for comparison during interpretation with the most relevant dated 04/28/2024TECHNIQUE:CHEST, 1 VIEWFINDINGS:Chest:Lines and tubes: Right-sided STAFF ANTISUBMARINE OFFICER shuntMediastinum: Cardiomegaly.Pulmonary vessels: There is pulmonary vascular congestion.Lung david: Improving airspace opacitiesPleura: No effusion. No pneumothorax.Bones and soft tissues: No acute osseous or soft tissue abnormality.IMPRESSION:1. Improving airspace opacities and pulmonary vascular congestion compared to 5 days priorTHIS IS AN ELECTRONICALLY VERIFIED FINAL REPORT05/03/2024 7:54 AM - Electronically signed by Ravindra Choe MD
[2024-05-03 08:15] LABS: BAND NEUTROPHILS % 1 % (0-10); PLATELET MORPHOLOGY COMMENT NORMAL (NORMAL)
[2024-05-03 08:16] LABS: ANISOCYTOSIS 1+
[2024-05-03] MEDS: LASIX IVP STA (10:26)
[2024-05-03 16:54] LABS: BILIRUBIN,URINE NEGATIVE (NEGATIVE); BLOOD/HEMOGLOBIN,URINE NEGATIVE (NEGATIVE); GLUCOSE, URINE NEGATIVE (NEGATIVE); KETONES,URINE NEGATIVE (NEGATIVE); LEUKOCYTE ESTERASE ,URINE NEGATIVE (NEGATIVE); NITRITES,URINE NEGATIVE (NEGATIVE); PROTEIN,URINE 2+ (NEGATIVE); UROBILINOGEN,URINE NORMAL (NORMAL)
[2024-05-03 17:07] LABS: APPEARANCE,URINE CLEAR (CLEAR); COLOR,URINE YELLOW (YELLOW)
[2024-05-03 17:25] LABS: BACTERIA,URINE TRACE /HPF (NEGATIVE); RBC,URINE NONE SEEN /HPF (0-3); SQUAMOUS EPITHELIAL CELL,UR NEGATIVE /HPF (NEGATIVE)
[2024-05-03 20:09] VITALS: TEMP 98.3
[2024-05-03 21:29] VITALS: PULSE 78; O2SAT 93
[2024-05-03 21:55] VITALS: BP 156/70; RESP 34
== END 2024-05-03 21:25 | disposition short-term general hospital (02) | DRG 729 ==
LOC: ER 14:33 → MED/SURG 14:33 → INTOOBSV 20:09 → OBSVTOIN 20:09 → MED/SURG 20:52 → ICU 05-03 13:25
PROVIDERS: ADMIT Obstetrics & Gynecology Obstetrics; ATTEND Surgery